=== PATIENT | female | born 1945 | race Caucasian/White ===

== ENCOUNTER 2016-08-15 10:40 | Outpatient (CLI) | payer MEDICARE, OTHER | END 2016-08-15 10:41 | disposition home or self-care (01) | DX: N63 Unspecified lump in breast (principal) ==

== ENCOUNTER 2016-08-19 10:47 | Outpatient (CLI) | payer MEDICARE, OTHER | END 2016-08-19 10:48 | disposition home or self-care (01) | DX: N63 Unspecified lump in breast (principal) ==

== ENCOUNTER 2017-11-25 09:43 | Outpatient (CLI) | payer MEDICARE, OTHER ==
--- NOTE | 2017-11-26 13:15 | Mammography Report ---
Procedure Date: 11/25/2017 Accession Number: [id number] / [id number] Procedure: MARIA GUADALUPE - Screening Mammo Dig Bilat CPT Code: FULL RESULT: EXAM: Screening Mammo Dig Bilat DATE: 11/25/2017 10:03 AM CLINICAL HISTORY: 72-year-old nulliparous patient for screening, history of benign left breast cyst COMPARISON: 08/15/2016, 12/19/2014, 01/01/2013, 10/28/2011, 11/02/2010, 09/25/2009 TECHNIQUE: Bilateral CC, laterally exaggerated CC, MLO views were obtained. FINDINGS: Breasts demonstrate heterogeneously dense fibroglandular parenchyma bilaterally. Coarse and punctate, typically benign calcifications are present. No suspicious masses, clustered microcalcifications, or regions of architectural distortion are identified. IMPRESSION: Benign findings RECOMMENDATION: Routine annual screening unless otherwise clinically indicated. BIRADS CATEGORY 2: Benign findings STANDARD QUALIFYING STATEMENTS: 1. This examination was reviewed with the aid of Computer-Aided Detection (CAD). 2. A negative or benign imaging report should not delay biopsy if clinically suspicious findings are present. Consider surgical consultation if warrented. More than 5% of cancers are not identified by imaging. 3. Dense breasts may obscure an underlying neoplasm.
== END 2017-11-25 09:44 | disposition home or self-care (01) ==
LOC: DI 09:43
PROVIDERS: ATTEND Nurse Practitioner Family
DX: Z12.31 Encounter for screening mammogram for malignant neoplasm of breast (principal)
CPT/HCPCS: 77067

== ENCOUNTER 2017-12-11 07:12 | Outpatient (CLI) | payer MEDICARE, OTHER ==
[2017-12-11 11:56] LABS: BASOPHILS # (AUTO) 0.1 10^3/uL (0.0-0.1); BASOPHILS % (AUTO) 2.2 %; EOSINOPHILS # (AUTO) 0.6 10^3/uL (0.0-0.7); EOSINOPHILS % (AUTO) 9.9 %; HGB - HEMOGLOBIN 12.7 g/dL (12.0-16.0); LYMPHOCYTES # (AUTO) 1.4 10^3/uL (1.5-3.5); LYMPHOCYTES % (AUTO) 21.8 %; MEAN CORPUSCULAR HEMOGLOBIN 32.2 pg (27.0-31.0); MEAN CORPUSCULAR HGB CONC 33.4 g/dL (32.0-36.0); MEAN CORPUSCULAR VOLUME 96.3 fL (81.0-99.0); MEAN PLATELET VOLUME 7.9 fL (7.9-10.8); MONOCYTES # (AUTO) 0.6 10^3/uL (0.0-1.0); MONOCYTES % (AUTO) 9.7 %; NEUTROPHILS # (AUTO) 3.6 10^3/uL (1.5-6.6); NEUTROPHILS % (AUTO) 56.4 %; PLT - PLATELET COUNT 354 10^3/uL (130-450); RED BLOOD COUNT 3.96 10^6/uL (4.20-5.40); RED CELL DISTRIBUTION WIDTH 13.7 % (12.0-15.0); WHITE BLOOD COUNT 6.3 x10^3/uL (4.8-10.8)
[2017-12-11 12:18] LABS: ALBUMIN/GLOBULIN RATIO 1.3 (1.0-2.2); ALKALINE PHOSPHATASE 53 IU/L (42-121); ALT ALANINE AMINOTRANSFERASE < 10 IU/L (10-60); AST ASPARTATE AMINOTRANSFERASE 23 IU/L (10-42); BILIRUBIN,TOTAL 0.7 mg/dL (0.2-1.0); BUN - BLOOD UREA NITROGEN 23 mg/dL (6-20); CALCIUM 9.2 mg/dL (8.5-10.3); CARBON DIOXIDE - CO2 29 mmol/L (21-32); CHLORIDE 103 mmol/L (101-111); CHOL/HDL RATIO 3.6 (<4.4); CHOLESTEROL 276 mg/dL; CREATININE 0.7 mg/dL (0.4-1.0); GFR - MDRD 82 (>89); GLUCOSE 96 mg/dL (70-100); HDL CHOLESTEROL 76 mg/dL; LDL CHOLESTEROL,CALCULATED 185 mg/dL; LDL/HDL RATIO 2.4 (<4.4); SODIUM 138 mmol/L (135-145); TOTAL PROTEIN 7.2 g/dL (6.7-8.2); VLDL CHOLESTEROL 15 mg/dL
== END 2017-12-11 07:13 | disposition home or self-care (01) ==
LOC: LAB.F 07:12
PROVIDERS: ATTEND Nurse Practitioner Family
DX: I10 Essential (primary) hypertension (principal); E78.5 Hyperlipidemia, unspecified; R73.01 Impaired fasting glucose; G25.0 Essential tremor; J45.909 Unspecified asthma, uncomplicated; J30.89 Other allergic rhinitis
CPT/HCPCS: 36415; 80053; 80061; 83721; 84443; 85025

== ENCOUNTER 2018-04-20 07:58 | Outpatient (CLI) | payer MEDICARE, OTHER ==
[2018-04-20 11:37] LABS: ALBUMIN 4.1 g/dL (3.2-5.5); ALKALINE PHOSPHATASE 58 IU/L (42-121); ALT ALANINE AMINOTRANSFERASE < 10 IU/L (10-60); AST ASPARTATE AMINOTRANSFERASE 30 IU/L (10-42); BILIRUBIN,DIRECT 0.1 mg/dL (0.1-0.5); CHOLESTEROL 171 mg/dL; HDL CHOLESTEROL 87 mg/dL; LDL CHOLESTEROL,CALCULATED 72 mg/dL; LDL/HDL RATIO 0.8 (<4.4); TOTAL PROTEIN 6.9 g/dL (6.7-8.2); VLDL CHOLESTEROL 12 mg/dL
== END 2018-04-20 07:59 | disposition home or self-care (01) ==
LOC: LAB.F 07:58
PROVIDERS: ATTEND Nurse Practitioner Family
DX: E78.5 Hyperlipidemia, unspecified (principal)
CPT/HCPCS: 36415; 80061; 80076; 83721

== ENCOUNTER 2018-12-28 17:00 | Outpatient (CLI) | payer MEDICARE, OTHER ==
--- NOTE | 2018-12-29 11:49 | XRAY Report ---
Reason: PAIN AND SWELLING LATERAL R ANKLE Procedure Date: 12/28/2018 Accession Number: [id number] / [id number] Procedure: XR - Ankle 3 View RT CPT Code: FULL RESULT: EXAM: RIGHT ANKLE RADIOGRAPHY EXAM DATE: 12/28/2018 05:09 PM. CLINICAL HISTORY: Pain and swelling lateral right ankle. COMPARISON: None. TECHNIQUE: 3 views. FINDINGS: Bones: There is a small focus, 2 mm, of ill-defined cortex in the tip of the medial malleolus. There is a small calcaneal plantar spur. Otherwise, no fractures or bone lesions identified. Joints: No effusion. No subluxations. There is mild osteoarthritis in the mortise joint. Soft Tissues: There is mild soft tissue swelling in the lateral malleolus. IMPRESSION: 1. A small focus of ill-defined cortex in the tip of the medial malleolus, which may represent imaging artifact versus tiny avulsion fracture. Otherwise, no fractures or bone destructive lesions identified. 2. 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 RADIA
== END 2018-12-28 17:01 | disposition home or self-care (01) ==
LOC: DI 17:00
PROVIDERS: ATTEND Podiatrist
DX: M19.071 Primary osteoarthritis, right ankle and foot (principal)

== ENCOUNTER 2019-01-04 07:23 | Outpatient (CLI) | payer MEDICARE, OTHER ==
[2019-01-04 10:34] LABS: BUN - BLOOD UREA NITROGEN 16 mg/dL (6-20); CARBON DIOXIDE - CO2 28 mmol/L (21-32); CHLORIDE 103 mmol/L (101-111); CREATININE 0.6 mg/dL (0.4-1.0); GFR - MDRD 98 (>89); GLUCOSE 112 mg/dL (70-100); SODIUM 141 mmol/L (135-145)
[2019-01-04 10:35] LABS: ALBUMIN 3.9 g/dL (3.2-5.5); ALBUMIN/GLOBULIN RATIO 1.1 (1.0-2.2); ALKALINE PHOSPHATASE 70 IU/L (42-121); ALT ALANINE AMINOTRANSFERASE < 10 IU/L (10-60); AST ASPARTATE AMINOTRANSFERASE 27 IU/L (10-42); CALCIUM 9.4 mg/dL (8.5-10.3); TOTAL PROTEIN 7.3 g/dL (6.7-8.2); VLDL CHOLESTEROL 12 mg/dL
[2019-01-04 10:36] LABS: CHOL/HDL RATIO 2.1 (<4.4); CHOLESTEROL 173 mg/dL; HDL CHOLESTEROL 83 mg/dL; LDL CHOLESTEROL,CALCULATED 78 mg/dL; LDL/HDL RATIO 0.9 (<4.4)
[2019-01-04 10:39] LABS: HEMOGLOBIN A1C 0.53 g/dL; HEMOGLOBIN A1C % 5.9 % (4.6-6.2)
== END 2019-01-04 07:24 | disposition home or self-care (01) ==
LOC: LAB.S 07:23
PROVIDERS: ATTEND Internal Medicine
DX: E78.5 Hyperlipidemia, unspecified (principal); R73.01 Impaired fasting glucose; Z13.39 Encounter for screening examination for other mental health and behavioral disorders
CPT/HCPCS: 36415; 80053; 80061; 83036; 83721

== ENCOUNTER 2019-01-07 12:59 | Outpatient (CLI) | payer MEDICARE, OTHER ==
--- NOTE | 2019-01-08 09:30 | DEXA Report ---
Reason: OSTEOPOROSIS Procedure Date: 01/07/2019 Accession Number: [id number] / [id number] Procedure: DEX - Dexa Forearm CPT Code: FULL RESULT: EXAM: Dexa Spine and/or Hip, Dexa Forearm DATE: 01/07/2019 2:30 PM CLINICAL HISTORY: OSTEOPOROSIS TECHNIQUE: Dual energy x-ray absorptiometry (DXA) was performed on a [employer] System. Regions measured are the AP Spine, femoral neck, and if needed forearm. COMPARISON: None. In accordance with the International Society for Clinical Densitometry (ISCD) guidelines, data from previous exams may be reanalyzed using current recommendations and techniques. This is done to allow a more accurate basis for comparison with the current study. FINDINGS: The data for the hip is as follows: BMD (g/cm/cm) T-SCORE Z-SCORE REGION Neck 0.700 -2.4 0.2 TOTAL 0.674 -2.6 -0.1 NOTE: The femoral neck or total proximal femur, whichever is lowest, is used for classification. The data for the left forearm is as follows: BMD (g/cm/cm) T-SCORE Z-SCORE REGION 1/3 0.574 -3.4 -1.3 NOTE: The 33% radius of the nondominant forearm is used for classification. IMPRESSION: THE WHO CLASSIFICATION BASED ON THE INTERNATIONAL REFERENCE STANDARD IS OSTEOPOROSIS. THE FRACTURE RISK IS HIGH. RECOMMENDATION: Patients with diagnosis of osteoporosis or osteopenia should have regular bone mineral density assessment. For those eligible for Medicare, routine testing is allowed once every 2 years. Testing frequency can be increased for patients who have rapidly progressing disease or for those who are receiving medical therapy to restore bone mass. COMMENT: World Health Organization (WHO) definitions for osteoporosis and osteopenia: NORMAL BMD: T-score at -1.0 or higher, fracture risk is low OSTEOPENIA BMD: T-score between -1.0 and -2.5, fracture risk is increased. OSTEOPOROSIS BMD: T-score at -2.5 or lower, fracture risk is high. National Osteoporosis Foundation recommends: 1. Obtain adequate dietary calcium (at least 1200 mg per day) and vitamin D (400-800 international units per day). 2. Participate, as appropriate, in regular weightbearing and muscle-strengthening exercise. 3. Avoid tobacco use and reduce alcohol and caffeine intake. 4. For more detailed information see the website at www.NOF.org.
--- NOTE | 2019-01-08 09:30 | DEXA Report ---
Reason: OSTEOPOROSIS Procedure Date: 01/07/2019 Accession Number: [id number] / [id number] Procedure: DEX - Dexa Spine and/or Hip CPT Code: FULL RESULT: EXAM: Dexa Spine and/or Hip, Dexa Forearm DATE: 01/07/2019 2:30 PM CLINICAL HISTORY: OSTEOPOROSIS TECHNIQUE: Dual energy x-ray absorptiometry (DXA) was performed on a [employer] System. Regions measured are the AP Spine, femoral neck, and if needed forearm. COMPARISON: None. In accordance with the International Society for Clinical Densitometry (ISCD) guidelines, data from previous exams may be reanalyzed using current recommendations and techniques. This is done to allow a more accurate basis for comparison with the current study. FINDINGS: The data for the hip is as follows: BMD (g/cm/cm) T-SCORE Z-SCORE REGION Neck 0.700 -2.4 0.2 TOTAL 0.674 -2.6 -0.1 NOTE: The femoral neck or total proximal femur, whichever is lowest, is used for classification. The data for the left forearm is as follows: BMD (g/cm/cm) T-SCORE Z-SCORE REGION 1/3 0.574 -3.4 -1.3 NOTE: The 33% radius of the nondominant forearm is used for classification. IMPRESSION: THE WHO CLASSIFICATION BASED ON THE INTERNATIONAL REFERENCE STANDARD IS OSTEOPOROSIS. THE FRACTURE RISK IS HIGH. RECOMMENDATION: Patients with diagnosis of osteoporosis or osteopenia should have regular bone mineral density assessment. For those eligible for Medicare, routine testing is allowed once every 2 years. Testing frequency can be increased for patients who have rapidly progressing disease or for those who are receiving medical therapy to restore bone mass. COMMENT: World Health Organization (WHO) definitions for osteoporosis and osteopenia: NORMAL BMD: T-score at -1.0 or higher, fracture risk is low OSTEOPENIA BMD: T-score between -1.0 and -2.5, fracture risk is increased. OSTEOPOROSIS BMD: T-score at -2.5 or lower, fracture risk is high. National Osteoporosis Foundation recommends: 1. Obtain adequate dietary calcium (at least 1200 mg per day) and vitamin D (400-800 international units per day). 2. Participate, as appropriate, in regular weightbearing and muscle-strengthening exercise. 3. Avoid tobacco use and reduce alcohol and caffeine intake. 4. For more detailed information see the website at www.NOF.org.
== END 2019-01-07 13:00 | disposition home or self-care (01) ==
LOC: DI 12:59
PROVIDERS: ATTEND Internal Medicine
DX: M81.0 Age-related osteoporosis without current pathological fracture (principal)
CPT/HCPCS: 77080; 77081

== ENCOUNTER 2019-01-07 13:02 | Outpatient (CLI) | payer MEDICARE, OTHER ==
--- NOTE | 2019-01-08 11:18 | Mammography Report ---
Reason: SCREENING MAMMO Procedure Date: 01/07/2019 Accession Number: [id number] / [id number] Procedure: MARIA GUADALUPE - Screening Mammo w/Daljit CPT Code: FULL RESULT: EXAM: Screening Mammo w/Daljit DATE: 01/07/2019 2:32 PM CLINICAL HISTORY: Screening encounter. History of nulliparity and history of left benign breast biopsy, excisional type. Family history of breast cancer in a paternal grandmother at the age of 70. TECHNIQUE: (B) - Bilateral CC and MLO views were obtained. Bilaterally medially exaggerated CC views are also obtained. COMPARISON: 11/25/2017 through 01/01/2013. PARENCHYMAL PATTERN: (VD) - The breast(s) demonstrate(s) extremely dense parenchyma, limiting the sensitivity of mammography. FINDINGS: There are coarse typically benign calcifications. There are no suspicious masses, calcifications, or areas of distortion. IMPRESSION: Benign findings. BI-RADS category 2. RECOMMENDATION: (ANNUAL) - Recommend routine annual screening mammography. BI-RADS CATEGORY: (2) - Benign Findings. STANDARD QUALIFYING STATEMENTS: 1. This examination was not reviewed with the aid of Computer-Aided Detection (CAD). 2. A negative or benign imaging report should not preclude biopsy if clinically suspicious findings are present. 3. Dense breasts may obscure an underlying neoplasm. 4. This examination was reviewed with the aid of 3D breast imaging (tomosynthesis).
== END 2019-01-07 13:03 | disposition home or self-care (01) ==
LOC: DI 13:02
DX: Z12.31 Encounter for screening mammogram for malignant neoplasm of breast (principal); Z80.3 Family history of malignant neoplasm of breast
CPT/HCPCS: 77063; 77067

== ENCOUNTER 2020-01-04 07:03 | Outpatient (CLI) | payer MEDICARE, OTHER ==
[2020-01-04 15:52] LABS: ALBUMIN 4.4 g/dL (3.2-5.5); ALBUMIN/GLOBULIN RATIO 1.5 (1.0-2.2); ALKALINE PHOSPHATASE 57 IU/L (42-121); ALT ALANINE AMINOTRANSFERASE < 10 IU/L (10-60); AST ASPARTATE AMINOTRANSFERASE 29 IU/L (10-42); BILIRUBIN,TOTAL 0.9 mg/dL (0.2-1.0); BUN - BLOOD UREA NITROGEN 23 mg/dL (6-20); CALCIUM 9.5 mg/dL (8.5-10.3); CARBON DIOXIDE - CO2 28 mmol/L (21-32); CHLORIDE 105 mmol/L (101-111); CHOL/HDL RATIO 1.8 (<4.4); CHOLESTEROL 161 mg/dL; CREATININE 0.7 mg/dL (0.4-1.0); GLUCOSE 103 mg/dL (70-100); HDL CHOLESTEROL 90 mg/dL; SODIUM 141 mmol/L (135-145); TOTAL PROTEIN 7.4 g/dL (6.7-8.2)
== END 2020-01-04 07:04 | disposition home or self-care (01) ==
LOC: LAB.S 07:03
PROVIDERS: ATTEND Internal Medicine
DX: E78.5 Hyperlipidemia, unspecified (principal); R73.01 Impaired fasting glucose
CPT/HCPCS: 36415; 80053; 80061; 81599; 83036; 83721

== ENCOUNTER 2020-12-25 07:12 | Outpatient (CLI) | payer MEDICARE, OTHER ==
[2020-12-25 16:25] LABS: BASOPHILS # (AUTO) 0.1 10^3/uL (0.0-0.1); BASOPHILS % (AUTO) 1.2 %; EOSINOPHILS # (AUTO) 0.5 10^3/uL (0.0-0.7); EOSINOPHILS % (AUTO) 7.9 %; HCT - HEMATOCRIT 40.2 % (37.0-47.0); HGB - HEMOGLOBIN 12.4 g/dL (12.0-16.0); LYMPHOCYTES # (AUTO) 1.8 10^3/uL (1.5-3.5); LYMPHOCYTES % (AUTO) 30.1 %; MEAN CORPUSCULAR HEMOGLOBIN 31.6 pg (27.0-31.0); MEAN CORPUSCULAR HGB CONC 30.8 g/dL (32.0-36.0); MEAN CORPUSCULAR VOLUME 102.6 fL (81.0-99.0); MEAN PLATELET VOLUME 10.3 fL (7.9-10.8); MONOCYTES # (AUTO) 0.8 10^3/uL (0.0-1.0); MONOCYTES % (AUTO) 13.7 %; NEUTROPHILS # (AUTO) 2.8 10^3/uL (1.5-6.6); NEUTROPHILS % (AUTO) 46.8 %; PLT - PLATELET COUNT 300 10^3/uL (130-450); RED BLOOD COUNT 3.92 10^6/uL (4.20-5.40); RED CELL DISTRIBUTION WIDTH 13.4 % (12.0-15.0)
[2020-12-25 16:50] LABS: THYROID STIMULATING HORMONE 2.38 uIU/mL (0.34-5.60)
[2020-12-25 16:55] LABS: ALBUMIN 4.4 g/dL (3.2-5.5); ALBUMIN/GLOBULIN RATIO 1.5 (1.0-2.2); ALKALINE PHOSPHATASE 52 IU/L (42-121); ALT ALANINE AMINOTRANSFERASE < 10 IU/L (10-60); AST ASPARTATE AMINOTRANSFERASE 36 IU/L (10-42); BILIRUBIN,TOTAL 0.9 mg/dL (0.2-1.0); BUN - BLOOD UREA NITROGEN 22 mg/dL (6-20); CALCIUM 9.3 mg/dL (8.5-10.3); CARBON DIOXIDE - CO2 29 mmol/L (21-32); CHLORIDE 102 mmol/L (101-111); CHOL/HDL RATIO 2.1 (<4.4); CHOLESTEROL 187 mg/dL; CREATININE 0.7 mg/dL (0.4-1.0); GFR - MDRD 82 (>89); GLUCOSE 108 mg/dL (70-100); HDL CHOLESTEROL 88 mg/dL; LDL CHOLESTEROL,CALCULATED 86 mg/dL; SODIUM 138 mmol/L (135-145); TOTAL PROTEIN 7.3 g/dL (6.7-8.2); TRIGLYCERIDES 66 mg/dL; VLDL CHOLESTEROL 13 mg/dL
[2020-12-25 20:03] LABS: ESTIMATED AVERAGE GLUCOSE 117 mg/dL (70-100); HEMOGLOBIN A1c% 5.7 % (4.27-6.07)
== END 2020-12-25 07:13 | disposition home or self-care (01) ==
LOC: LAB.S 07:12
PROVIDERS: ATTEND Registered Nurse
DX: E78.5 Hyperlipidemia, unspecified (principal); R73.01 Impaired fasting glucose; J45.909 Unspecified asthma, uncomplicated
CPT/HCPCS: 36415; 80053; 80061; 83036; 83721; 84443; 85025

== ENCOUNTER 2021-04-08 12:58 | Outpatient (CLI) | payer MEDICARE, OTHER ==
--- NOTE | 2021-04-10 08:02 | Mammography Report ---
BILATERAL DIGITAL SCREENING MAMMOGRAM 3D/2D WITH EXAGGERATED CC: 04/08/2021 CLINICAL: Routine screening. Comparison is made to exams dated: 01/07/2019 mammogram, 11/25/2017 mammogram, and 08/19/2016 ultrasound - [facility]. The tissue of both breasts is heterogeneously dense. This may lower the sensitivity of mammography. No significant masses, calcifications, or other findings are seen in either breast. There has been no significant interval change. IMPRESSION: NEGATIVE There is no mammographic evidence of malignancy. A 1 year screening mammogram is recommended. This exam was interpreted at Station ID: [id number]. NOTE: For mammograms, a report in lay terms will be sent to the patient. Approximately 15% of breast malignancies will not be visualized mammographically. In the management of a palpable breast mass, a negative mammogram must not discourage biopsy of a clinically suspicious lesion. Electronically Signed By: Mayte gomez/mario:04/09/2021 11:11:00 ACR BI-RADS Category 1: Negative 3341F PARENCHYMAL PATTERN: (D) - The breast(s) demonstrate(s) heterogeneously dense fibroglandular jie self. BI-RADS CATEGORY: (1) - 1 RECOMMENDATION: (ANNUAL) - Recommend routine annual screening mammography. [id number] 1 year screening LATERALITY: (B)
== END 2021-04-08 12:59 | disposition home or self-care (01) ==
LOC: DI.S 12:58
PROVIDERS: ATTEND Registered Nurse
DX: Z12.31 Encounter for screening mammogram for malignant neoplasm of breast (principal)

== ENCOUNTER 2022-03-06 10:00 | Outpatient (CLI) | payer MEDICARE, OTHER ==
--- NOTE | 2022-03-06 15:27 | XRAY Report ---
PROCEDURE: Foot 3 View RT INDICATIONS: ACUTE RIGHT FOOT PAIN TECHNIQUE: 3 views of the foot were acquired. COMPARISON: None FINDINGS: Bones: No fractures or dislocations. No suspicious bony lesions. Moderate joint space narrowing an d periarticular osteophyte formation at the first metatarsophalangeal joint. Mild periarticular osteo phyte formation at the interphalangeal joints of the digits. Soft tissues: No tibiotalar joint effusion. Achilles tendon appears normal. IMPRESSION: Osteoarthritis. No acute fracture. No osseous lesion. If symptoms and/or clinical suspicion for patho logy continue, further assessment with repeat plain films, or advanced imaging (e.g., CT, MRI, or bon e scan) is recommended for further assessment. Reviewed by: Lj Hernandez MD on 03/06/2022 3:25 PM PDT Approved by: Lj Hernandez MD on 03/06/2022 3:25 PM PDT Station ID: [id number]
== END 2022-03-06 10:01 | disposition home or self-care (01) ==
LOC: DI.S 10:00
PROVIDERS: ATTEND Podiatrist
DX: M19.071 Primary osteoarthritis, right ankle and foot (principal)

== ENCOUNTER 2022-04-17 09:52 | Outpatient (CLI) | payer MEDICARE, OTHER ==
--- NOTE | 2022-04-29 10:05 | Mammography Report ---
BILATERAL DIGITAL SCREENING MAMMOGRAM 3D/2D WITH EXAGGERATED CC: 04/17/2022 CLINICAL: Routine screening. Comparison is made to exams dated: 04/08/2021 mammogram, 08/19/2016 ultrasound, 08/15/2016 mammogram, an d 12/19/2014 mammogram - [facility]. Both breasts are extremely dense, which lowers the sensitivity of mammography (category d />75% gland ular tissue). No significant masses, calcifications, or other findings are seen in either breast. There has been no significant interval change. IMPRESSION: NEGATIVE There is no mammographic evidence of malignancy. A 1 year screening mammogram is recommended. Based on the Tyrer Cuzick model (a risk assessment model) the patients lifetime risk is 6.3% and her 10 year risk is 0.0%. According to the ACR, ACS, and NCCN guidelines, an annual breast MRI exam jake g with mammogram is recommended if the patients lifetime risk is 20% or greater. This exam was interpreted at Station ID: [id number]. NOTE: For mammograms, a report in lay terms will be sent to the patient. Approximately 15% of breast malignancies will not be visualized mammographically. In the management of a palpable breast mass, a negative mammogram must not discourage biopsy of a clinically suspicious lesion. Electronically Signed By: Judson Jensen M.D., jr/mario:04/26/2022 14:43:41 ACR BI-RADS Category 1: Negative 3341F PARENCHYMAL PATTERN: (VD) - The breast(s) demonstrate(s) extremely dense parenchyma, limiting the sen sitivity of mammography. BI-RADS CATEGORY: (1) - 1 RECOMMENDATION: (ANNUAL) - Recommend routine annual screening mammography. [id number] 1 year screening LATERALITY: (B)
== END 2022-04-17 09:53 | disposition home or self-care (01) ==
LOC: DI.S 09:52
PROVIDERS: ATTEND Registered Nurse
DX: Z12.31 Encounter for screening mammogram for malignant neoplasm of breast (principal)

== ENCOUNTER 2022-04-24 07:20 | Outpatient (CLI) | payer MEDICARE, OTHER ==
[2022-04-24 14:37] LABS: BASOPHILS # (AUTO) 0.1 10^3/uL (0.0-0.1); BASOPHILS % (AUTO) 1.5 %; EOSINOPHILS # (AUTO) 0.3 10^3/uL (0.0-0.7); EOSINOPHILS % (AUTO) 5.1 %; HCT - HEMATOCRIT 39.3 % (37.0-47.0); HGB - HEMOGLOBIN 12.5 g/dL (12.0-16.0); LYMPHOCYTES # (AUTO) 1.4 10^3/uL (1.5-3.5); MEAN CORPUSCULAR HEMOGLOBIN 32.6 pg (27.0-31.0); MEAN CORPUSCULAR HGB CONC 31.8 g/dL (32.0-36.0); MEAN CORPUSCULAR VOLUME 102.3 fL (81.0-99.0); MEAN PLATELET VOLUME 9.9 fL (7.9-10.8); MONOCYTES # (AUTO) 0.6 10^3/uL (0.0-1.0); MONOCYTES % (AUTO) 11.6 %; NEUTROPHILS # (AUTO) 2.9 10^3/uL (1.5-6.6); NEUTROPHILS % (AUTO) 55.6 %; PLT - PLATELET COUNT 325 10^3/uL (130-450); RED BLOOD COUNT 3.84 10^6/uL (4.20-5.40); RED CELL DISTRIBUTION WIDTH 13.2 % (12.0-15.0); WHITE BLOOD COUNT 5.3 x10^3/uL (4.8-10.8)
[2022-04-24 15:14] LABS: ALBUMIN 4.4 g/dL (3.2-5.5); ALBUMIN/GLOBULIN RATIO 1.4 (1.0-2.2); ALKALINE PHOSPHATASE 66 IU/L (42-121); ALT ALANINE AMINOTRANSFERASE < 10 IU/L (10-60); AST ASPARTATE AMINOTRANSFERASE 37 IU/L (10-42); BILIRUBIN,TOTAL 0.9 mg/dL (0.2-1.0); BUN - BLOOD UREA NITROGEN 21 mg/dL (6-20); CALCIUM 9.5 mg/dL (8.5-10.3); CARBON DIOXIDE - CO2 30 mmol/L (21-32); CHLORIDE 105 mmol/L (101-111); CHOLESTEROL 170 mg/dL; CREATININE 0.7 mg/dL (0.4-1.0); GFR - MDRD 81 (>89); GLUCOSE 113 mg/dL (70-100); HDL CHOLESTEROL 84 mg/dL; LDL CHOLESTEROL,CALCULATED 75 mg/dL; LDL/HDL RATIO 0.9 (<4.4); SODIUM 140 mmol/L (135-145); TOTAL PROTEIN 7.5 g/dL (6.7-8.2); TRIGLYCERIDES 56 mg/dL; VLDL CHOLESTEROL 11 mg/dL
[2022-04-24 15:24] LABS: THYROID STIMULATING HORMONE 1.28 uIU/mL (0.34-5.60)
== END 2022-04-24 07:21 | disposition home or self-care (01) ==
LOC: LAB.S 07:20
PROVIDERS: ATTEND Registered Nurse
DX: J45.909 Unspecified asthma, uncomplicated (principal); E78.5 Hyperlipidemia, unspecified; R73.01 Impaired fasting glucose; Z79.899 Other long term (current) drug therapy
CPT/HCPCS: 36415; 80053; 80061; 83721; 84443; 85025

== ENCOUNTER 2022-06-19 12:30 | Outpatient (CLI) | payer MEDICARE, OTHER ==
--- NOTE | 2022-06-19 18:19 | DEXA Report ---
PROCEDURE: Dexa Spine and/or Hip INDICATIONS: POST MENOPAUSAL. Extensive scoliosis precludes evaluation of the lumbar spine bone patent examiner alization. Forearm was substituted TECHNIQUE: Dual energy x-ray absorptiometry (DXA) was performed on a [employer]. Regions measur ed are the AP Spine, femoral neck, and if needed forearm. COMPARISON: None. FINDINGS: Left Femoral Neck: Bone Mineral Density 0.621 g/cm/cm, T score -3.0, osteoporosis Left Hip: Bone Mineral Density 0.702 g/cm/cm,T score -2.4, previous BMD 0.657 Left forearm: Bone Mineral Density 0.505 g/cm/cm, T score -4.2, previous 0.567 BMD (T score greater or equal to -1.0: NORMAL) (T score from -1.1 to -2.4: OSTEOPENIA) (T score less than or equal to -2.5 to: OSTEOPOROSIS) Impression: Left hip osteopenia slightly improved, and left forearm osteoporosis slightly worse Patients with diagnosis of osteoporosis or osteopenia should have regular bone mineral density assess ment. For those eligible for Medicare, routine testing is allowed once every 2 years. Testing frequ ency can be increased for patients who have rapidly progressing disease or for those who are receivin g medical therapy to restore bone mass. Reviewed by: Ridge Jarvis MD on 06/19/2022 5:17 PM [place] Approved by: Ridge Jarvis MD on 06/19/2022 5:17 PM [place] Station ID: [id number]
== END 2022-06-19 12:31 | disposition home or self-care (01) ==
LOC: DI 12:30
PROVIDERS: ATTEND Registered Nurse
DX: Z78.0 Asymptomatic menopausal state (principal); M81.0 Age-related osteoporosis without current pathological fracture

== ENCOUNTER 2023-06-02 07:52 | Outpatient (CLI) | payer MEDICARE, OTHER ==
[2023-06-02 15:13] LABS: BASOPHILS # (AUTO) 0.1 10^3/uL (0.0-0.1); BASOPHILS % (AUTO) 1.8 %; EOSINOPHILS # (AUTO) 0.3 10^3/uL (0.0-0.7); EOSINOPHILS % (AUTO) 4.4 %; HCT - HEMATOCRIT 40.3 % (37.0-47.0); HGB - HEMOGLOBIN 12.7 g/dL (12.0-16.0); LYMPHOCYTES # (AUTO) 1.5 10^3/uL (1.5-3.5); MEAN CORPUSCULAR HEMOGLOBIN 31.7 pg (27.0-31.0); MEAN CORPUSCULAR HGB CONC 31.5 g/dL (32.0-36.0); MEAN CORPUSCULAR VOLUME 100.5 fL (81.0-99.0); MEAN PLATELET VOLUME 10.3 fL (7.9-10.8); MONOCYTES # (AUTO) 0.9 10^3/uL (0.0-1.0); MONOCYTES % (AUTO) 13.9 %; NEUTROPHILS # (AUTO) 3.3 10^3/uL (1.5-6.6); NEUTROPHILS % (AUTO) 54.7 %; PLT - PLATELET COUNT 325 10^3/uL (130-450); RED BLOOD COUNT 4.01 10^6/uL (4.20-5.40); RED CELL DISTRIBUTION WIDTH 12.7 % (12.0-15.0); WHITE BLOOD COUNT 6.1 x10^3/uL (4.8-10.8)
[2023-06-02 15:30] LABS: ALBUMIN 4.5 g/dL (3.2-5.5); ALBUMIN/GLOBULIN RATIO 1.7 (1.0-2.2); ALKALINE PHOSPHATASE 62 IU/L (42-121); ALT ALANINE AMINOTRANSFERASE 9 IU/L (10-60); AST ASPARTATE AMINOTRANSFERASE 36 IU/L (10-42); BILIRUBIN,TOTAL 0.7 mg/dL (0.2-1.0); BUN - BLOOD UREA NITROGEN 17 mg/dL (6-20); CALCIUM 9.9 mg/dL (8.5-10.3); CARBON DIOXIDE - CO2 30 mmol/L (21-32); CHLORIDE 106 mmol/L (101-111); CHOL/HDL RATIO 1.9 (<4.4); CHOLESTEROL 155 mg/dL; CREATININE 0.6 mg/dL (0.6-1.3); GFR - MDRD 97 (>89); GLUCOSE 83 mg/dL (74-104); HDL CHOLESTEROL 81 mg/dL; LDL CHOLESTEROL,CALCULATED 57 mg/dL; LDL/HDL RATIO 0.7 (<4.4); POTASSIUM 3.9 mmol/L (3.5-4.5); SODIUM 142 mmol/L (135-145); TOTAL PROTEIN 7.1 g/dL (6.4-8.9); TRIGLYCERIDES 83 mg/dL (48-352); VLDL CHOLESTEROL 17 mg/dL
== END 2023-06-02 07:53 | disposition home or self-care (01) ==
LOC: LAB.S 07:52
PROVIDERS: ATTEND Registered Nurse
DX: R73.9 Hyperglycemia, unspecified (principal); Z79.899 Other long term (current) drug therapy; E78.5 Hyperlipidemia, unspecified
CPT/HCPCS: 36415; 80053; 80061; 83721; 85025

== ENCOUNTER 2023-06-17 13:03 | Outpatient (CLI) | payer MEDICARE, OTHER ==
--- NOTE | 2023-06-18 16:48 | Mammography Report ---
BILATERAL DIGITAL SCREENING MAMMOGRAM 3D/2D: 06/17/2023 CLINICAL: Routine screening. Comparison is made to exams dated: 04/17/2022 mammogram, 04/08/2021 mammogram, 01/07/2019 mammogram, a nd 11/25/2017 mammogram - [facility]. Both breasts are extremely dense, which lowers the sensitivity of mammography (category d />75% gland ular tissue). No significant masses, calcifications, or other findings are seen in either breast. There has been no significant interval change. IMPRESSION: NEGATIVE There is no mammographic evidence of malignancy. A 1 year screening mammogram is recommended. Based on the Tyrer Cuzick model (a risk assessment model) the patients lifetime risk is 5.6% and her 10 year risk is 0.0%. According to the ACR, ACS, and NCCN guidelines, an annual breast MRI exam jake g with mammogram is recommended if the patients lifetime risk is 20% or greater. This exam was interpreted at Station ID: [id number]. NOTE: For mammograms, a report in lay terms will be sent to the patient. Approximately 15% of breast malignancies will not be visualized mammographically. In the management of a palpable breast mass, a negative mammogram must not discourage biopsy of a clinically suspicious lesion. Electronically Signed By: Gonzalo sharma/mario:06/17/2023 16:09:45 letter sent: No_Letter ACR BI-RADS Category 1: Negative 3341F PARENCHYMAL PATTERN: (VD) - The breast(s) demonstrate(s) extremely dense parenchyma, limiting the sen sitivity of mammography. BI-RADS CATEGORY: (1) - 1 Mammogram [id number] 1 year screening LATERALITY: (B)
== END 2023-06-17 13:04 | disposition home or self-care (01) ==
LOC: DI.S 13:03
DX: Z12.31 Encounter for screening mammogram for malignant neoplasm of breast (principal); R92.343 Mammographic extreme density, bilateral breasts

== ENCOUNTER 2024-03-04 22:13 | Emergency (ER) | payer MEDICARE, OTHER ==
[2024-03-04 22:31] VITALS: O2SAT 99
--- NOTE | 2024-03-04 23:47 | XRAY Report ---
PROCEDURE: Wrist 3+V LT INDICATIONS: pain/tenderness/swelling L wrist. TECHNIQUE: 3 views of the wrist were acquired. COMPARISON: 09/22/2023 FINDINGS: Bones: Moderately impacted and displaced distal radius fracture. Small radial styloid fracture fragm ent also seen. Background mild to moderate degenerative changes. Soft tissues: No suspicious calcifications. IMPRESSION: Moderately impacted and angulated distal radius fracture. Radial styloid fracture fragment also prese nt. Background degenerative changes. Reviewed by: Roge Mackey MD on 03/04/2024 11:46 PM PDT Approved by: Roge Mackey MD on 03/04/2024 11:46 PM PDT Station ID: [id number]
--- NOTE | 2024-03-04 23:53 | ED Physician Documentation ---
PD HPI UPPER EXT INJURY - Stated complaint Stated Complaint: GLF/L WRIST INJ - Chief complaint Chief Complaint: Ext Problem - History obtained from History obtained from: Patient - History of Present Illness Location: Left - Additonal information Additional information: HPI from patient. Patient c/o sudden onset left wrist pain when she tripped on carpeting and fell earlier tonight. Patient is right hand dominant. She denies any other injury aside from the left wrist. Denies numbness, weakness. Pain is exacerbated with any attempts at movement of the left wrist, or palpation. Does not take any blood-thinning medication PD PAST MEDICAL HISTORY - Past Medical History Past Medical History: Yes Cardiovascular: High cholesterol Respiratory: Asthma Neuro: Parkinson's Endocrine/Autoimmune: None GI: None UPHOLSTERY TECH: None : None HEENT: None Psych: None Musculoskeletal: None Derm: None - Past Surgical History Past Surgical History: No - Present Medications Home Medications: Ambulatory Orders Medication Instructions Recorded Confirmed Albuterol Sulfate [Proair Hfa] 8.5 gm IH ONCE 07/11/13 01/19/15 Atorvastatin Calcium 40 mg PO DAILY 03/04/24 Carbidopa/Levodopa 1 tab PO DAILY 03/04/24 [Carbidopa-Levodopa 25-100 Tab] HYDROcod/ACETAM 5/325 [Topping 5/325] 1 - 2 tablet PO Q6H PRN #14 tablet 03/05/24 - Allergies Allergies/Adverse Reactions: Allergies Allergy/AdvReac Type Severity Reaction Status Date / Time alendronate sodium Allergy Unknown Verified 03/04/24 22:26 [From Fosamax] ibandronate sodium Allergy Unknown Verified 03/04/24 22:26 [From Boniva] Penicillins Allergy Unknown Verified 03/04/24 22:26 risedronate sodium Allergy Unknown Verified 03/04/24 22:26 [From Actonel] Sulfa (Sulfonamide Allergy Unknown Verified 03/04/24 22:26 Antibiotics) - Social History Does the pt smoke?: No Smoking Status: Never smoker Does the pt drink ETOH?: Yes Does the pt have substance abuse?: No - Immunizations Immunizations are current?: Yes - POLST Patient has POLST: No PD ED PE NORMAL - Vitals Vital signs reviewed: Yes - General General: Alert and oriented X 3, No acute distress, Well developed/nourished - HEENT HEENT: Atraumatic - Neck Neck: No bony TTP PD ED PE EXPANDED - Extremities Extremities: Deformity, Tenderness, Limited ROM, Bruising, Other (left wrist deformity with mild dorsal angulation and displacement (from long axis of FA). TTP, mild swelling and ecchymosis. LTS intact in hand, fingers. brisk capillary refill in fingertips) Results - Vitals Vitals: Oxygen O2 Source Room air - Rads (name of study) left wrist xrays Relevant Findings:: Prelim report reviewed, See rad report post-reduction left wrist xrays Relevant Findings:: EMP independent interpretation of test (I reviewed these images and my interpretation is no significant change compared to previous xrays) Procedures - Splint (location) - Minor Upper extremity left Splint applied by: Physician, Nurse Type of splint: Fiberglass, Sugar tong Other: Patient tolerated well, No complications, Neurovascular intact, Sling provided - Regional nerve block - Minor Nerve block site: Ulnar, Radial, Other (hematoma block (dorsal surface left wrist)) Right / left: Left Nerve block anesthesia: Lidocaine 1% Nerve block aftercare: Moderate Anesthesia PD Medical Decision Making - ED course Complexity details: reviewed results, re-evaluated patient, considered differential, d/w patient ED course: Presents with left distal radial fracture with ulnar styloid fracture, as well. I performed hematoma block as above (two separate injections of 1% lidocaine without epinephrine in to dorsal surface left wrist at site of deformity with blood on drawback prior to either injection; total of 8 cc injected). Unfortunately, patient's anesthesia was moderate; she had too much discomfort for more aggressive attempts at reduction (although able to tolerate some degree of my attempts to reduce the amount of angulation/displacement). Repeat xrays do not show any significant change in the displacement. Weighing risks/benefits, I did discuss conscious sedation with patient but recommended against it, as she is (now splinted) reporting feeling much better, is NVI, and degree of displacement on xrays is acceptable. She agrees with no further attempts at this time. Return precautions carefully reviewed including signs/symptoms of compartment syndrome. I instructed her to seek follow up with orthopedic surgery within 3-5 days. At this time there is no ortho salon assistant for [facility] but outpatient ortho f/u should be available. Patient is placed in sugar-tong splint (both ED RN and myself applied this), then placed in sling. Given take-home pack of vicodin and rx for same electronically submitted to patient's pharmacy of choice. Departure - Departure Disposition: 01 Home, Self Care Clinical Impression: Left wrist fracture Qualifiers: Encounter type: initial encounter Fracture type: closed Qualified Code(s): S62.102A - Fracture of unspecified carpal bone, left wrist, initial encounter for closed fracture Condition: Good Instructions: ED Fx Colles Wrist Redu Requ, ED Sling, ED Splint Care Fiberglass Follow-Up: Reginald Escalona MD [Provider Admit Priv/Credential] - Prescriptions: HYDROcod/ACETAM 5/325 [Topping 5/325] 1 - 2 tablet PO Q6H PRN #14 tablet PRN Reason: Pain Comments: I have electronically submitted a prescription for Vicodin (narcotic/opiate pain medication) to the [facility] in [place]. Follow-up with orthopedic surgery in the next 3 to 5 days. The contact information (office address, name, office phone number) for the on-call orthopedic surgeon for [facility] (Dr. Escalona) is included on these discharge instructions. I recommend that you contact that office when they open later this morning to see if they can accommodate a follow-up appointment within that timeframe. If not, contact your primary care provider or your insurance provider to inquire about the referral process. I am prescribing a short course of narcotic pain medication for you. These are potentially dangerous and addictive medications that should be used carefully. These medications may constipate you. Take an rxwr-cbm-bxxfgjk stool softener (docusate) twice daily with plenty of water while taking these medications. If you go 24 hours without a bowel movement, take isem-rls-tjdobsd miralax, per package instructions. Do not drink or drive while taking these medications. If you received narcotic or sedating medications while in the emergency department, do not drive for 24 hours. Store this medication in a safe, secure place and out of reach of children. It is a violation of federal law to give or sell this medication to another person or to use in a manner other than prescribed. The ED will not refill narcotic prescriptions, including prescriptions lost or stolen. To dispose of unwanted medications: 1. [facility] [address] in [place] has a medication drop box. They accept prescription medications (in pill form) Friday through Friday 9:00 a.m. to 5:00 p.m. 2. The [facility] accepts prescription medications (in pill form only) for disposal year round. Call for more information. 3. Contact the [facility] for the next [facility] sponsored prescription drug collection event. , [phone], or [phone]; Discharge Date/Time: 03/05/24 03:11
[2024-03-05] MEDS: LIDOCAINE 1% 2 ML VIAL SUBQ STA (01:12)
[2024-03-05 02:40] VITALS: BP 164/90
[2024-03-05] MEDS: HYDROcod/ACET 5/325 Prepack 4 PO STA (02:58)
--- NOTE | 2024-03-05 07:47 | XRAY Report ---
PROCEDURE: Wrist 3+V LT INDICATIONS: post-reduction TECHNIQUE: 3 views of the wrist were acquired. COMPARISON: 03/04/2024 reduction films. FINDINGS: Bones: Casted views. Slight interval improvement in alignment. Comminuted impacted distal radius fra cture with dorsal angulation and involvement of the articular surface associated distal radioulnar di slocation. Soft tissues: No suspicious soft tissue calcifications or masses. IMPRESSION: Slight improvement in alignment. Comminuted, impacted distal radius fracture with dorsal angulation a nd involvement of the articular surface, with associated distal radioulnar dislocation Findings are concordant with preliminary interpretation provided by [facility]. Reviewed by: Daren Hawk MD on 03/05/2024 7:46 AM PDT Approved by: Daren Hawk MD on 03/05/2024 7:46 AM PDT Station ID: [id number]
== END 2024-03-05 03:11 | disposition home or self-care (01) ==
LOC: ED 22:13
DX: S52.512A Displaced fracture of left radial styloid process, initial encounter for closed fracture (principal); W18.09XA Striking against other object with subsequent fall, initial encounter; Y92.003 Bedroom of unspecified non-institutional (private) residence as the place of occurrence of the external cause
CPT/HCPCS: 25605; 99283; 99284

== ENCOUNTER 2024-03-08 09:50 | Outpatient (CLI) | payer MEDICARE, OTHER ==
--- NOTE | 2024-03-08 11:30 | CT Report ---
PROCEDURE: Upper Extremity LT WO INDICATIONS: COLLES FX OF LEFT RADIUS TECHNIQUE: Noncontrast 2 mm axial sections were acquired through the elbow joint, with coronal and sagittal refo rmats. For radiation dose reduction, the following was used: automated exposure control, adjustment of mA and/or kV according to patient size. COMPARISON: Chest films dated 03/04/2024, left wrist dated 03/05/2024. FINDINGS: Image quality: Excellent. Bones: Impacted displaced markedly comminuted distal radius fracture involving the articular surface with dorsal angulation of the major distal fragment. Soft tissues: Intact IMPRESSION: Impacted, displaced, markedly comminuted distal radius fracture involving the articular surface with dorsal angulation of the major distal fragment. Reviewed by: Daren Hawk MD on 03/08/2024 11:29 AM PDT Approved by: Daren Hawk MD on 03/08/2024 11:29 AM PDT Station ID: [id number]
== END 2024-03-08 09:51 | disposition home or self-care (01) ==
LOC: DI 09:50
PROVIDERS: ATTEND Orthopaedic Surgery
DX: S52.532A Colles' fracture of left radius, initial encounter for closed fracture (principal)

== ENCOUNTER 2024-03-10 07:45 | Day surgery (SDC) | payer MEDICARE, OTHER ==
[2024-03-10] MEDS: LACTATED RINGERS 1,000 ML IV ONE (07:49)
[2024-03-10] MEDS ORDERED: ceFAZolin 2 GM VIAL ONE (07:52)
[2024-03-10] MEDS ORDERED: ACETAMINOPHEN 1,000 MG/100 ML 1,000 MG/100 ML BAG IV ONE (07:52)
[2024-03-10] MEDS ORDERED: BUPIVACAINE 0.25% PF 30 ML VIAL ONE (08:04)
[2024-03-10] MEDS: GABAPENTIN 400 MG CAPSULE ONE (08:05)
[2024-03-10] MEDS: CELECOXIB 100 MG CAPSULE PO ONE (08:05)
[2024-03-10] MEDS ORDERED: SCOPOLAMINE PATCH TOP ONE (08:13)
[2024-03-10] MEDS ORDERED: ROCURONIUM 50 MG/5 ML VIAL ONE (08:19)
[2024-03-10] MEDS ORDERED: fentaNYL 100 MCG/2 ML VIAL ONE (08:19)
[2024-03-10] MEDS ORDERED: PROPOFOL 200 MG/20 ML VIAL IVP ONE (08:19)
[2024-03-10] MEDS ORDERED: ePHEDrine 50 MG/ML VIAL IVP PRN (08:46)
[2024-03-10] MEDS ORDERED: ATROPINE ABBOJECT 1 MG/10 ML SYRINGE IVP PRN (08:46)
[2024-03-10] MEDS ORDERED: ONDANSETRON 4 MG/2 ML VIAL IVP PRN (08:46)
[2024-03-10] MEDS ORDERED: NALOXONE 0.4 MG/ML VIAL IVP PRN (08:46)
[2024-03-10] MEDS ORDERED: MORPHINE 2 MG/ML CARPUJECT IVP PRN (08:46)
[2024-03-10] MEDS ORDERED: fentaNYL 100 MCG/2 ML VIAL IVP PRN (08:46)
[2024-03-10] MEDS ORDERED: HYDROmorphone 0.5 MG/0.5 ML SYRINGE IVP PRN (08:46)
--- NOTE | 2024-03-10 08:46 | ANESTHESIA ---
Pre-Anesthesia VS, & Labs - Diagnosis left wrist fx - Procedure orif l wrist Vital Signs: Temp Pulse Resp BP Pulse Ox O2 Flow Rate 36 C L 92 24 116/85 H 96 03/10/24 08:18 03/10/24 08:18 03/10/24 08:18 03/10/24 08:18 03/10/24 08:18 Height: 5 ft 3 in Weight (kg): 42.7 kg Body Mass Index: 16.7 BMI Classification: Underweight - NPO >8 hours - Is Patient ?: No - Lab Results Lab results reviewed: Yes Home Medications and Allergies Home Medications: Ambulatory Orders Acetaminophen [Tylenol] 500 - 1,000 mg PO Q8H PRN 03/08/24 Ascorbic Acid [Vitamin C] 500 mg PO DAILY 03/08/24 Beclomethasone 40 Mcg [Qvar 40] 2 puffs INH BID 03/08/24 Quercetin 2 tab PO BID 03/08/24 Vitamin E (Dl,Tocopheryl Acet) [Vitamin E] 180 mg PO DAILY 03/08/24 cod liver oiL [Cod Liver Oil] 2 each PO DAILY 03/08/24 Albuterol Sulfate [Proair Hfa] 1 - 2 puffs IH PRN PRN 07/11/13 Atorvastatin Calcium 40 mg PO DAILY 03/04/24 Carbidopa/Levodopa [Carbidopa-Levodopa 25-100 Tab] 1 tab PO QID 03/04/24 Acetaminophen [Tylenol] 500 - 1,000 mg PO Q8H PRN 03/08/24 Ascorbic Acid [Vitamin C] 500 mg PO DAILY 03/08/24 Beclomethasone 40 Mcg [Qvar 40] 2 puffs INH BID 03/08/24 Quercetin 2 tab PO BID 03/08/24 Vitamin E (Dl,Tocopheryl Acet) [Vitamin E] 180 mg PO DAILY 03/08/24 cod liver oiL [Cod Liver Oil] 2 each PO DAILY 03/08/24 Allergies/Adverse Reactions: Allergies Allergy/AdvReac Type Severity Reaction Status Date / Time alendronate sodium Allergy Unknown Verified 03/04/24 22:26 [From Fosamax] ibandronate sodium Allergy Unknown Verified 03/04/24 22:26 [From Boniva] Penicillins Allergy Unknown Verified 03/04/24 22:26 risedronate sodium Allergy Unknown Verified 03/04/24 22:26 [From Actonel] Sulfa (Sulfonamide Allergy Unknown Verified 03/04/24 22:26 Antibiotics) Anes History & Medical History - Anesthetic History Anesthesia Complications: reports: No previous complications Family history of Anesthesia Complications: Denies - Medical History Cardiovascular: reports: High cholesterol Pulmonary: reports: Asthma (uses her inhalers, breathing "feels good" today) Gastrointestinal: reports: None Urinary: reports: None Neuro: reports: Parkinson's (levodopa/carbidopa q4hr 11-23-2-etc) Musculoskeletal: reports: Scoliosis, Chronic back pain Endocrine/Autoimmune: reports: None Blood Disorders: reports: None Skin: reports: None Smoking Status: Never smoker Psychosocial: reports: No issues indicated Results - EKG Results EKG Comparison: Normal EKG Exam General: Alert, Oriented x3 Dental: WNL Mouth Openin Fingerbreadth Neck Mobility: Reduced Mallampati classification: II Thyromental Distance: less than 4 cm Respiratory: Lungs clear Cardiovascular: Regular rate Plan Anesthesia Type: General Consent for Procedure(s) Verified and Reviewed: Yes Code Status: Attempt Resuscitation ASA classification: 3-Severe systemic disease Is this case an emergency?: No
[2024-03-10] MEDS ORDERED: LACTATED RINGERS 1,000 ML IV SCH (09:00)
[2024-03-10] MEDS ORDERED: DEXAMETHASONE 4 MG/ML VIAL ONE (09:07)
[2024-03-10] MEDS: BUPIVACAINE 0.25% PF 10 ML VIAL SUBQ ONE (09:25)
[2024-03-10] MEDS ORDERED: ONDANSETRON 4 MG/2 ML VIAL ONE (09:25)
[2024-03-10] MEDS ORDERED: SUGAMMADEX 200 MG/2 ML VIAL IVP ONE (09:26)
[2024-03-10] MEDS ORDERED: HYDROmorphone 1 MG/ML CARPUJECT ONE (09:30)
[2024-03-10] MEDS: LACTATED RINGERS 300 ML IV ONE (09:39)
[2024-03-10] MEDS ORDERED: oxyCODONE 5 MG TABLET PO PRN ×2 (09:50→09:53)
[2024-03-10] MEDS ORDERED: ACETAMINOPHEN 500 MG TABLET PO PRN ×2 (09:50→09:53)
[2024-03-10] MEDS ORDERED: ONDANSETRON ODT 4 MG TABLET TL PRN (09:50)
--- NOTE | 2024-03-10 10:02 | OPERATIVE REPORT ---
Operative Report - General Procedure Date: 03/10/24 Planned Procedure: closed versus open reduction and percutaneous pinning versus open reduction internal fixation Pre-Op Diagnosis: displaced left distal radius fracture Procedure Performed: closed reduction and percutaneous pinning of the left distal radius fracture - Procedure Note Primary Surgeon: Iqra Secondary Surgeon: Aisha Estimated Blood Loss (mL): 5 Complications: None - Other Other Information/Narrative: Op Note Date of Procedure: 03/10/24 Indication For Surgery: displaced unstable left distal radius fracture Pre-Op Diagnosis: displaced unstable left distal radius fracture Post-Op Diagnosis: displaced unstable left distal radius fracture Procedure Procedure(s): Open Reduction and Internal Fixation of the Closed Distal Radius Fracture Surgeon: Reginald Escalona MD Co-Surgeon: DO Anay Gracia PA physician Central Office Inspector was used throughout the entirety of the case. They assisted with room set up, patient positioning, draping, retraction, reduction, fixation and closure. They were essential for the success of the case. Anesthesia Type: General EBL: 5cc Specimens Removed: None Complications: None Implants/Grafts: 0.062 K wires Drains: No lines, drains, or airways are recorded for this episode. Findings: Displaced distal radius fracture, reduced and fixed Narrative: The patient was met in the pre-operative hold area. Consent was verified. Operative extremity was signed. All questions were answered. They were brought to the operating room and surrendered to anesthesia. Once general anesthesia was obtained they were prepped and draped. A time out was performed. initial fluoroscopic films of AP and lateral were obtained to determine the location of the fracture. At that time we performed a closed reduction with axial traction and flexion through the fracture site. We had a good reduction both in the AP and lateral and decided that we would pin this fracture for additional stability. A K wire was placed from the radial styloid proximally and ulnarly until it captured the far cortex. This gave us good fixation and placement of the wire was confirmed in AP and lateral. At this point we placed a second wire from the dorsal ulnar corner also proximally and radially holding 2 points of fixation. Again final fluoroscopic imaging was obtained. We are happy with the reduction and placement of our hardware. 10cc of 0.5% marcaine without epinephrine was placed. A sterile dressing and splint was applied. Postoperative Plan: Sugar-tong splint for 2 weeks follow-up in the orthopedics clinic in 2 weeks for splint removal radiographs and transition to a short arm cast. Reginald Escalona MD
[2024-03-10 11:20] VITALS: BP 145/67; O2SAT 97
--- NOTE | 2024-03-10 11:34 | ANESTHESIA POST OP EVALUATION ---
Anesthesia Post Eval - Post Anesthesia Eval Vitals: Last Vital Signs Temp 36.1 C L 03/10/24 11:17 Pulse 93 03/10/24 11:17 Resp 14 03/10/24 11:17 BP 145/67 H 03/10/24 11:17 Pulse Ox 97 03/10/24 11:17 O2 Flow Rate CV Function Including HR & BP: Stable Pain Control: Satisfactory Nausea & Vomiting: Negative Mental Status: Baseline Respiratory Status: Airway Patent Hydration Status: Satisfactory Anesthesia Complications: None
== END 2024-03-10 07:46 | disposition home or self-care (01) ==
LOC: SDS 07:45
PROVIDERS: ATTEND Orthopaedic Surgery
DX: S52.532A Colles' fracture of left radius, initial encounter for closed fracture (principal); R63.6 Underweight; Z68.1 Body mass index [BMI] 19.9 or less, adult; J45.909 Unspecified asthma, uncomplicated; G20.A1 Parkinson's disease without dyskinesia, without mention of fluctuations
CPT/HCPCS: 25606; A9270; C1713; J0131; J1170; J7120

== ENCOUNTER 2024-05-31 17:47 | Inpatient (IN) ==
--- NOTE | 2024-05-31 18:14 | ED Physician Documentation ---
PD HPI LOWER EXT INJURY Stated complaint Stated Complaint: GLF/RT HIP PX Chief complaint Chief Complaint: Trauma Ext History obtained from History obtained from: Patient and EMS History of Present Illness PD HPI LOW EXT INJURY LOCATION: Right and Hip Type of injury: Fall Where injury occurred: Home Timing - onset: Today (Fell within the hour or so prior to arrival. Unsteady gait due to her Parkinson's and general weakness. Usually assisted by her partner with a gait belt. Fell to the right side and was unable to move her hip or attempt standing due to pain. No other injury today.) Timing - details: Abrupt onset and Still present Improved by: Rest Worsened by: Moving and Palpating Associated symptoms: No Weakness or Numbness Contributing factors: No Anticoagulated or Prosthetic joint Similar symptoms before: Has not had sx before (No symptoms or injury of the hip recently. She has had falls recently with a left wrist fracture and a right humeral neck fracture within the last several months. Both are healed at this point with range of motion allowed.) Meds/Allgy Home Medications Ambulatory Orders Medication Instructions Recorded Confirmed albuterol sulfate 90 mcg/actuation 1 - 2 puff IH PRN PRN As Needed 07/11/13 05/10/24 aerosol inhaler (ProAir HFA) Per Provider Orders atorvastatin 40 mg tablet 40 mg PO DAILY 03/04/24 05/10/24 Ascorbic Acid [Vitamin C] 500 mg PO DAILY 03/08/24 05/10/24 Cod Liver Oil 2 ea PO DAILY 03/08/24 05/10/24 beclomethasone dipropionate 40 2 puff inhalation BID 03/08/24 05/10/24 mcg/actuation HFA breath activated aerosol (Qvar RediHaler) quercetin 500 mg capsule 2 tab PO BID 03/08/24 05/10/24 vitamin E (dl, acetate) 180 mg 180 mg PO DAILY 03/08/24 05/10/24 (400 unit) capsule ibuprofen 200 mg tablet (Advil) 400 mg PO Q8H PRN pain 04/18/24 05/10/24 carbidopa 25 mg-levodopa 100 mg 1.5 tab PO QID 05/06/24 05/10/24 tablet sertraline 25 mg tablet 25 mg PO QDAY 05/06/24 05/10/24 Allergies Allergies Allergy/AdvReac Type Severity Reaction Status Date / Time alendronate sodium (From Allergy Unknown Verified 05/31/24 17:58 Fosamax) ibandronate sodium (From Allergy Unknown Verified 05/31/24 17:58 Boniva) Penicillins Allergy Unknown Verified 05/31/24 17:58 risedronate sodium (From Allergy Unknown Verified 05/31/24 17:58 Actonel) Sulfa (Sulfonamide Allergy Unknown Verified 05/31/24 17:58 Antibiotics) FLU VACCINE Allergy Severe Unknown Uncoded 05/31/24 17:58 [facility] Medical History Medical History (Updated 05/31/24 @ 19:01 by Vinod Decker MD) Parkinson disease Family History Family History (Updated 05/24/24 @ 16:26 by Shar Victor MA) Father Family history of kidney disease Social History Social History Smoking Status: Never smoker Second hand tobacco smoke exposure: No Do you dip or chew tobacco?: No Do you vape?: No Living Condition: With spouse/s.o. Relationship: Home Mobility Equipment: Cane Do you feel safe in your home environment?: Yes Suffered physical, verbal, emotional, or financial abuse?: No History of Abuse: No ETOH Use: Wine Frequency: Occasional Substance Use: denies use POLST Patient has POLST: No Exam Constitutional normal general appearance and abnormal body habitus (thin) and (underweight) HENMT normocephalic and head/scalp atraumatic Neck/C-Spine cervical spine nontender and cervical full ROM noted Chest inspection of chest normal and palpation of chest normal Respiratory breath sounds equal bilaterally and normal respiratory effort Cardiovascular normal heart rate noted and regular rhythm noted Gastrointestinal abdomen soft to palpation and nontender to palpation Back/Pelvis no thoracic spine tenderness and no lumbar spine tenderness Extremities The right hip is acutely injured with pain on even slight attempted passive range of motion and palpation. Slight angulation of the direction of the knee and foot. No shortening. Prior nontender deformity noted of the left wrist and limited range of motion of the right shoulder from previous injuries. She has good distal pulses color and capillary refill in the toes. Good sensation. Mild baseline tremor consistent with Parkinson's. Well oriented. Neurology no focal motor deficit noted and no sensory deficits noted Psychiatry mental status grossly normal, oriented x3, thought process normal and cooperative Skin skin color normal Results Vitals Vitals: Vital Signs - 24 hr 05/31/24 17:51 05/31/24 18:05 05/31/24 18:32 Temperature 37.1 C Temperature Source Temporal Artery Scan Pulse Rate 97 H 88 Respiratory Rate 22 18 Blood Pressure 183/92 H 132/84 H O2 Saturation 97 98 O2 Source Room air Room air Pain Intensity 10 5 10 05/31/24 18:33 Temperature Temperature Source Pulse Rate Respiratory Rate Blood Pressure O2 Saturation O2 Source Pain Intensity 10 Oxygen O2 Source Room air Labs Labs: Laboratory Tests 05/31/24 19:05 WBC 12.6 H RBC 3.45 L Hgb 11.2 L Hct 33.0 L MCV 95.7 MCH 32.5 H MCHC 33.9 RDW 12.8 Plt Count 390 MPV 9.0 Neut # (Auto) 11.0 H Lymph # (Auto) 0.6 L Heard # (Auto) 0.9 Eos # (Auto) 0.0 Baso # (Auto) 0.0 Absolute Nucleated RBC 0.00 Nucleated RBC % 0.0 Rads (name of study) right hip: Relevant Findings:: Final report received and EMP independent interpretation of test (proximal right femoral neck vs intertrochanteric fracture with some angulation, but no shortening. ) PD Medical Decision Making ED course Complexity details: reviewed results (The patient had a high suspicion for hip fracture clinically. X-ray showed a clear femoral neck or anterior troches fracture. I reviewed it with Dr. Escalona who reviewed the films and requested to CT scan as better staging for surgery. Defers to hospitalist), considered differential (Accidental fall from Parkinson's and lost balance with hip fracture acutely. Will obtain basic labs. Ortho defers to hospitalist and I will call the not time nighttime hospitalist service.), d/w patient (The patient had a recent wrist fracture and shoulder fracture within the last several months. I described to her the difference with the hip being the difficulty with immobilization and fixation of it without surgical approach and she is understanding of that.) and d/w home sales consultant (I talked with Dr. Escalona for orthopedics and the nighttime hospitalist for [facility].) Discharge Plan Discharge Patient Disposition: 66 [facility] DC/Xfer Condition: Stable Clinical Impression: Fall as cause of accidental injury at home as place of occurrence, Parkinson's disease, Closed hip fracture Prescriptions: No Action albuterol sulfate [ProAir HFA] 8.5 GM HFA aerosol inhaler 1 - 2 puff IH PRN PRN (Reason: As Needed Per Provider Orders) atorvastatin 40 MG tablet 40 mg PO DAILY carbidopa-levodopa 25-100 mg tablet 1.5 tab PO QID Rx Instructions: Extra 1/4 tablet BID PRN Qvar RediHaler 100 PUFFS HFA aerosol breath activated 2 puff inhalation BID Ascorbic Acid [Vitamin C] 250 MG tablet 500 mg PO DAILY vitamin E (dl, acetate) 180 MG capsule 180 mg PO DAILY quercetin 500 MG capsule 2 tab PO BID Cod Liver Oil 1 EACH capsule 2 ea PO DAILY ibuprofen [Advil] 200 mg tablet 400 mg PO Q8H PRN (Reason: pain) sertraline 25 mg tablet 25 mg PO QDAY Interventions: ED Discharge Assessment Last Done: 05/31/24 18:05 Print Language: Yi
[2024-05-31] MEDS: KETOROLAC 15 MG/ML VIAL IVP STA (18:32)
[2024-05-31] MEDS: LORazepam 2 MG/ML VIAL IVP STA (18:32)
[2024-05-31] MEDS: HYDROmorphone 0.5 MG/0.5 ML SYRINGE IVP STA (18:33)
[2024-05-31 19:11] LABS: BASOPHILS % (AUTO) 0.3 %; EOSINOPHILS % (AUTO) 0.3 %; HGB - HEMOGLOBIN 11.2 g/dL (12.0-16.0); LYMPHOCYTES # (AUTO) 0.6 10^3/uL (1.5-3.5); MEAN CORPUSCULAR HEMOGLOBIN 32.5 pg (27.0-31.0); MEAN CORPUSCULAR HGB CONC 33.9 g/dL (32.0-36.0); MEAN CORPUSCULAR VOLUME 95.7 fL (81.0-99.0); MONOCYTES # (AUTO) 0.9 10^3/uL (0.0-1.0); MONOCYTES % (AUTO) 6.9 %; PLT - PLATELET COUNT 390 10^3/uL (130-450); RED BLOOD COUNT 3.45 10^6/uL (4.20-5.40); RED CELL DISTRIBUTION WIDTH 12.8 % (12.0-15.0); WHITE BLOOD COUNT 12.6 x10^3/uL (4.8-10.8)
--- NOTE | 2024-05-31 19:16 | XRAY Report ---
PROCEDURE: XR Hip w/Pelvis 2-3V RT INDICATIONS: fall with hip pain TECHNIQUE: AP view the pelvis, lateral view of the right hip COMPARISON: None. FINDINGS: Severe osseous demineralization. Acute, varus impacted right proximal femoral basicervical fracture w ith intertrochanteric extension and involvement of the greater/lesser trochanters. There is approxima tely 90 degrees clockwise rotation of the femoral head at the right hip joint relative to the acetabu lum. There may be an additional varus impacted subcapital left femoral fracture. Severe lower lumbar osteoarthrosis. Mild bilateral sacroiliac joint osteophytes. Evaluation of the sa kayleen obscured due to overlying bowel gas. Vascular calcifications. IMPRESSION: 1.Severe varus impacted right proximal femoral basicervical fracture with intertrochanteric extension . 2.Possible additional impacted left femoral subcapital fracture. Reviewed by: Gabriel Gordon MD on 05/31/2024 7:15 PM PST Approved by: Gabriel Gordon MD on 05/31/2024 7:15 PM PST Station ID: [id number]
--- NOTE | 2024-05-31 19:18 | XRAY Report ---
PROCEDURE: XR Chest 1V INDICATIONS: fall TECHNIQUE: One view of the chest was acquired. COMPARISON: Right shoulder x-ray 04/27/2024 FINDINGS: Surgical changes and devices: None. Lungs and pleura: No pleural effusions or pneumothorax. No consolidation. Mediastinum: Mediastinal contours appear normal. Heart size is normal. Bones and chest wall: Reidentified right proximal humeral surgical neck fracture with extension to th e greater lesser tuberosities and approximately 180 degree rotation of the dominant humeral head rela tive to the glenoid, similar to 04/27/2024. IMPRESSION: No acute cardiothoracic process. Reviewed by: Gabriel Gordon MD on 05/31/2024 7:17 PM PST Approved by: Gabriel Gordon MD on 05/31/2024 7:17 PM PST Station ID: [id number]
[2024-05-31 19:25] LABS: LIPASE 17 U/L (11-82); MAGNESIUM 2.1 mg/dL (1.7-2.3)
[2024-05-31 19:26] LABS: ALBUMIN 3.9 g/dL (3.2-5.5); ALBUMIN/GLOBULIN RATIO 1.4 (1.0-2.2); ALKALINE PHOSPHATASE 119 IU/L (42-121); ALT ALANINE AMINOTRANSFERASE < 3 IU/L (10-60); AST ASPARTATE AMINOTRANSFERASE 13 IU/L (10-42); BILIRUBIN,TOTAL 0.5 mg/dL (0.2-1.0); BUN - BLOOD UREA NITROGEN 19 mg/dL (6-20); CALCIUM 8.9 mg/dL (8.5-10.3); CARBON DIOXIDE - CO2 27 mmol/L (21-32); CHLORIDE 105 mmol/L (101-111); CREATININE 0.4 mg/dL (0.6-1.3); GFR - MDRD 154 (>89); GLUCOSE 121 mg/dL (74-104); POTASSIUM 3.6 mmol/L (3.5-4.5); SODIUM 138 mmol/L (135-145); TOTAL PROTEIN 6.6 g/dL (6.4-8.9)
[2024-05-31] MEDS: LIDOCAINE PATCH 4% TOP STA (19:46)
--- NOTE | 2024-05-31 20:02 | HISTORY & PHYSICAL EXAMINATION ---
Chief Complaint Chief Complaint Chief Complaint: hip pain after fall History of Present Illness Admitted From Admitted From:: Home History Obtained From Records Reviewed: Yes History obtained from: ED physician, Patient Exam Limitations: Telemedicine History of Present Illness HPI Comment/Other: Mrs. Ma is a 79yo F with a history of Parkinson's that presented for evaluation of hip pain after a fall. She has had worsening balance and gait problems for the past 4 months. She has had several falls. On the day of presentation, she explained that she lost her footing and fell on her rightside. She denied any head trauma or loss of consciousness. After the fall she was unable to move her right leg or bare weight due to pain. In the ED she was found to have a right intertronchanteric fracture of her right hip. Orthopedic surgery reviewed her case and agreed to take her to surgery. Due to the need for surgical management, I will admit the patient to the hospitalist service for further management. Review of Systems Status of ROS: 10 or more systems reviewed and unremarkable except as noted in history and below [facility] Medical History Medical History (Updated 05/31/24 @ 19:01 by Vinod Decker MD) Parkinson disease Family History Family History (Updated 05/24/24 @ 16:26 by Shar Victor MA) Father Family history of kidney disease Social History Social History Smoking Status: Never smoker Second hand tobacco smoke exposure: No Do you dip or chew tobacco?: No Do you vape?: No Living Condition: With spouse/s.o. Relationship: Home Mobility Equipment: Cane Do you feel safe in your home environment?: Yes Suffered physical, verbal, emotional, or financial abuse?: No History of Abuse: No ETOH Use: Wine Frequency: Occasional Substance Use: denies use POLST Patient has POLST: No Meds/Allgy Home Medications Ambulatory Orders Medication Instructions Recorded Confirmed albuterol sulfate 90 mcg/actuation 1 - 2 puff IH PRN PRN As Needed 07/11/13 05/10/24 aerosol inhaler (ProAir HFA) Per Provider Orders atorvastatin 40 mg tablet 40 mg PO DAILY 03/04/24 05/10/24 Ascorbic Acid [Vitamin C] 500 mg PO DAILY 03/08/24 05/10/24 Cod Liver Oil 2 ea PO DAILY 03/08/24 05/10/24 beclomethasone dipropionate 40 2 puff inhalation BID 03/08/24 05/10/24 mcg/actuation HFA breath activated aerosol (Qvar RediHaler) quercetin 500 mg capsule 2 tab PO BID 03/08/24 05/10/24 vitamin E (dl, acetate) 180 mg 180 mg PO DAILY 03/08/24 05/10/24 (400 unit) capsule ibuprofen 200 mg tablet (Advil) 400 mg PO Q8H PRN pain 04/18/24 05/10/24 carbidopa 25 mg-levodopa 100 mg 1.5 tab PO QID 05/06/24 05/10/24 tablet sertraline 25 mg tablet 25 mg PO QDAY 05/06/24 05/10/24 Allergies Allergies Allergy/AdvReac Type Severity Reaction Status Date / Time alendronate sodium (From Allergy Unknown Verified 05/31/24 17:58 Fosamax) ibandronate sodium (From Allergy Unknown Verified 05/31/24 17:58 Boniva) Penicillins Allergy Unknown Verified 05/31/24 17:58 risedronate sodium (From Allergy Unknown Verified 05/31/24 17:58 Actonel) Sulfa (Sulfonamide Allergy Unknown Verified 05/31/24 17:58 Antibiotics) FLU VACCINE Allergy Severe Unknown Uncoded 05/31/24 17:58 Exam Exam Examination, as recorded, was obtained from patient and staff reported information, as well as peripheral observation. Constitutional normal general appearance and no apparent distress HENMT normocephalic and head/scalp atraumatic Eyes EOMs intact bilaterally Chest inspection of chest normal Respiratory normal respiratory effort Cardiovascular normal heart rate noted and regular rhythm noted Back/Pelvis spine normal to inspection Extremities abnormal to inspection, abnormal ROM noted and deformity noted right LE shorten and rotated Neurology actuarial analyst II-XII intact, movement abnormality noted other and GCS 15 tremor Psychiatry oriented x3 Conclusion/Plan Problem List (1) Closed hip fracture: Plan: right hip fracture s/p ground level fall, will continue with management as follows: - I have reviewed Xray of hip myself, consistent with right intertrochanteric fracture and possible subcapital fracture - Case discussed with ED physician and orthopedic surgeon, agree with plan to proceed with surgical intervention - CT hip ordered per ortho's request, for complete evaluation of hip to determine surgical approach: results are pending -I have place patient on complete bed rest -I will initiate pain regimen of schedule tylenol 1gram and toradol 15mg x 3 doses, i will also order morphine for breakthrough pain -will monitor drug levels and clinical response to guide adjustments and avoid toxicity - I have reviewed patient's operative risk, RCRI score is low indicating low risk of major cardiac complication postoperatively -In anticipation for surgery will keep patient , nothing by mouth except medications after midnight (2) Parkinson's disease: Plan: Appears to be progressing, increase in falls over the past 6 months, persistent tremor -home medication reviewed. -Sinemet 25-100mg will be resumed -sertraline 25mg daily will be resumed Lab Results Lab results reviewed: Yes 05/31/24 19:05 05/31/24 19:05 Diagnostic Imaging Results Diagnostic Imaging Results: positive Final report reviewed Core Measures Anticipated LOS I expect patient to be DC'd or transferred within 96 hours.: Yes DVT/VTE - Prophylaxis VTE/DVT Device ordered at admit?: Yes Telemedicine Consult Details Provider Location & Consult Time Telemedicine consultation conducted via videoconferencing?: Yes
[2024-05-31] MEDS ORDERED: ONDANSETRON 4 MG/2 ML VIAL IVP PRN (20:14)
[2024-05-31] MEDS ORDERED: SODIUM CHLORIDE FLUSH 0.9% 10 ML SYRINGE IVP PRN (20:14)
[2024-05-31] MEDS ORDERED: ONDANSETRON ODT 4 MG TABLET TL PRN (20:14)
--- NOTE | 2024-05-31 20:23 | CT Report ---
PROCEDURE: CT Lower Extremity RT WO INDICATIONS: hip fracture; CT on Ortho request TECHNIQUE: Noncontrast 3-mm axial sections acquired from the distal tibial shaft to the talar dome, with coronal and sagittal reformats. For radiation dose reduction, the following was used: automated exposure c ontrol, adjustment of mA and/or kV according to patient size. COMPARISON: Same x-ray. FINDINGS: Image quality: Excellent. Bones: Intertrochanteric fracture of the right femur. There is posterior displacement of the greater trochanter and mild displacement of the lesser trochanter. There is increased apex lateral angulatio n centered at the fracture line. Convex left rotoscoliosis is partially visualized. No second fractur e is identified. Soft tissues: 7.3 x 2.4 cm hematoma posterior to the greater trochanter. Impression: Comminuted, angulated and displaced fracture of the right intertrochanteric femur. Reviewed by: Benigno Lewis MD on 05/31/2024 8:22 PM PST Approved by: Benigno Lewis MD on 05/31/2024 8:22 PM PST Station ID: [id number]
[2024-05-31] MEDS: ACETAMINOPHEN 500 MG TABLET PO SCH (21:26)
[2024-05-31] MEDS: CARBIDOPA/LEVODOPA 25 MG/100 MG TABLET PO SCH (21:27)
[2024-05-31] MEDS: QUERCETIN 500 MG PO SCH (21:28)
--- NOTE | 2024-05-31 21:39 | PREOP HISTORY & PHYSICAL ---
Surgical History & Physical Chief Complaint/HPI History of Present Illness: CC: Right Hip Fracture HPI: 79yo F with a history of Parkinson's, hypertension, hyperlipidemia and osteoporosis presents to the emergency department for a ground-level fall. She was attempting to sit down on a chair and fell onto her right hip. Denies hitting her head. She was unable to get up and she was brought to the emergency department where they obtained radiographs. It was there that she was found to have a right intertrochanteric fracture. Orthopedics was then consulted. She reports she has isolated pain to the right hip. No loss of function. Over the last couple months she has had worsening balance and gait problems. She is experienced multiple falls and has fractured her wrist and proximal humerus. Home Meds and Allergies Active Medications Generic Name Dose Route Start Last Admin Trade Name Freq PRN Reason Stop Dose Admin Acetaminophen 1,000 mg 05/31/24 21:00 05/31/24 21:26 Acetaminophen 500 Mg Tablet PO 06/01/24 09:01 1,000 mg Q6H SHANNAN Administration Atorvastatin Calcium 40 mg 06/01/24 09:00 Atorvastatin 40 Mg Tablet PO DAILY SHANNAN Carbidopa/Levodopa 1.5 tab 05/31/24 21:00 05/31/24 21:27 Carbidopa/Levodopa 25 Mg/100 Mg Tablet PO 1.5 tab QID SHANNAN Administration Carbidopa/Levodopa 0.25 tab 05/31/24 20:34 Carbidopa/Levodopa 25 Mg/100 Mg Tablet PO BID PRN PARKINSON Ketorolac Tromethamine 15 mg 06/01/24 02:30 Ketorolac 15 Mg/Ml Vial IVP 06/01/24 18:31 Q8H SHANNAN Morphine Sulfate 2 mg 05/31/24 20:14 Morphine 2 Mg/Ml Carpuject IVP Q2HR PRN Pain 8 to 10 Non-Formulary Medication 2 tab 05/31/24 21:00 05/31/24 21:28 Quercetin PO Not Given BID SHANNAN Ondansetron HCl 4 mg 05/31/24 20:14 Ondansetron 4 Mg/2 Ml Vial IVP Q6HR PRN Nausea / Vomiting Ondansetron HCl 4 mg 05/31/24 20:14 Ondansetron Odt 4 Mg Tablet TL Q6HR PRN Nausea / Vomiting Sertraline HCl 25 mg 06/01/24 09:00 Sertraline 25 Mg Tablet PO DAILY SHANNAN Sodium Chloride 10 ml 05/31/24 20:14 Sodium Chloride Flush 0.9% 10 Ml Syringe IVP PRN PRN NEEDED PER PROVIDER ORDERS Sodium Chloride 10 ml 06/01/24 01:00 Sodium Chloride Flush 0.9% 10 Ml Syringe IVP 0100,0900,1700 SHANNAN albuterol sulfate 90 mcg/actuation aerosol inhaler (ProAir HFA) 1 - 2 puff IH PRN PRN As Needed Per Provider Orders 07/11/13 atorvastatin 40 mg tablet 40 mg PO DAILY 03/04/24 Ascorbic Acid [Vitamin C] 500 mg PO DAILY 03/08/24 Cod Liver Oil 2 ea PO DAILY 03/08/24 beclomethasone dipropionate 40 mcg/actuation HFA breath activated aerosol (Qvar RediHaler) 2 puff inhalation BID 03/08/24 quercetin 500 mg capsule 2 tab PO BID 03/08/24 vitamin E (dl, acetate) 180 mg (400 unit) capsule 180 mg PO DAILY 03/08/24 ibuprofen 200 mg tablet (Advil) 400 mg PO Q8H PRN pain 04/18/24 carbidopa 25 mg-levodopa 100 mg tablet 1.5 tab PO QID 05/06/24 sertraline 25 mg tablet 25 mg PO QDAY 05/06/24 Allergies Allergy/AdvReac Type Severity Reaction Status Date / Time alendronate sodium (From Allergy Unknown Verified 05/31/24 17:58 Fosamax) ibandronate sodium (From Allergy Unknown Verified 05/31/24 17:58 Boniva) Penicillins Allergy Unknown Verified 05/31/24 17:58 risedronate sodium (From Allergy Unknown Verified 05/31/24 17:58 Actonel) Sulfa (Sulfonamide Allergy Unknown Verified 05/31/24 17:58 Antibiotics) FLU VACCINE Allergy Severe Unknown Uncoded 05/31/24 17:58 Vital Signs O2 Saturation: 96 Patient Review Patient Review Pertinent Tests Reviewed [facility] Medical History Medical History (Updated 05/31/24 @ 19:01 by Vinod Decker MD) Parkinson disease Family History Family History (Updated 05/24/24 @ 16:26 by Shar Victor MA) Father Family history of kidney disease Social History Social History Smoking Status: Never smoker Second hand tobacco smoke exposure: No Do you dip or chew tobacco?: No Do you vape?: No Living Condition: With spouse/s.o. Relationship: Level: Assisted Home Mobility Equipment: Walker and Wheelchair Do you feel safe in your home environment?: Yes Suffered physical, verbal, emotional, or financial abuse?: No History of Abuse: No ETOH Use: Wine Frequency: Occasional Substance Use: denies use POLST Patient has POLST: No Exam Exam RIGHT Hip: Inspection: No erythema, swelling, bruising, atrophy. Leg externally rotated. ROM deferred due to known fracture Neurovascular exam: Fires ta/gc/ehl; SILT s/s/sp/dp/t, 2+ dp Imaging: RIGHT hip radiographs on May 31, 2024: Demonstrates a displaced comminuted right hip intertrochanteric fracture. Assessment & Plan Assessment & Plan Assessment & Plan: 79yo F with a history of Parkinson's, hypertension, hyperlipidemia and osteoporosis presents with a right hip intertrochanteric fracture. I explained to the patient that it is recommended that she undergoes surgical intervention for early ambulation and recovery. The risk, benefits and alternatives of the procedure were discussed with the patient include bleeding, infection, damage surrounding structures, ongoing pain, malunion, nonunion, need for additional surgeries, loss of mobility, anesthesia risk such as heart attack, stroke and . Patient understood these risks and want to move forward with the procedure. Patient was signed and consented in the emergency department. She will be admitted to the internal medicine team for medical management. She will undergo operative fixation of the right hip on June 01, 2024. PLAN: Internal medicine admission Nonweightbearing right lower extremity N.p.o. at midnight Operative management of the right hip on June 01, 2024 Postoperatively, she will be admitted to the internal medicine team. She will most likely require SNF placement. The patient had the treatment plan explained, questions answered and seemed satisfied with the plan. There were no apparent barriers to communication. The documentation in this note may have been entered with the assistance of computer voice recognition and dictation software. Therefore, it may contain unintended errors in text, spelling, punctuation, or grammar. Reginald Escalona MD Orthopedic Surgeon
[2024-05-31] MEDS: MORPHINE 2 MG/ML CARPUJECT IVP PRN (23:47)
[2024-05-31] MEDS: SODIUM CHLORIDE FLUSH 0.9% 10 ML SYRINGE IVP SCH (23:48)
[2024-06-01] MEDS: SODIUM CHLORIDE 0.9% 1,000 ML IV SCH (01:44)
[2024-06-01] MEDS: KETOROLAC 15 MG/ML VIAL IVP SCH ×2 (02:07→11:14)
--- NOTE | 2024-06-01 08:45 | PROVIDER PROGRESS NOTE ---
Subjective Subjective Subjective: Patient is a 79-year-old female with a history of Parkinson's on carbidopa/levodopa who presents after a ground-level fall. She states that over the last 3 to 4 weeks, she has been experiencing more falls. She does see a neurologist, Dr. Jones, out of [place]. 2 weeks ago he recently increased her carbidopa/levodopa dose to 2 tabs 4 times daily because of her increasing falls. However, she has noticed increased hallucinations with this increased dose. Prior to coming in, she said that she lost footing, and fell on her right side. CT does show comminuted, angulated and displaced fracture of the right intertrochanteric femur. Orthopedic surgery was spoken with, and plan is to take her to the operating room today. Her pain is well-controlled on her current regimen of scheduled Toradol every 8 hours, as well as morphine as needed. We spoke about likely SNF placement after her surgery, and she is agreeable. Her brother is also at bedside, and would also like her to go to SNF. She typically lives alone, but her brother is staying with her at this time. Besides the Parkinson's, patient just takes Motrin as needed for pains. She does have a remote history of asthma with very infrequent albuterol use. Current Medications Current Medications Current Medications: Current Medications Generic Name Dose Route Start Last Admin Trade Name Freq PRN Reason Stop Dose Admin Acetaminophen 1,000 mg 05/31/24 21:00 06/01/24 02:04 Acetaminophen 500 Mg Tablet PO 06/01/24 09:01 1,000 mg Q6H SHANNAN Administration Atorvastatin Calcium 40 mg 06/01/24 21:00 Atorvastatin 40 Mg Tablet PO HS SHANNAN Carbidopa/Levodopa 1.5 tab 05/31/24 21:00 05/31/24 21:27 Carbidopa/Levodopa 25 Mg/100 Mg Tablet PO 1.5 tab QID SHANNAN Administration Carbidopa/Levodopa 0.25 tab 05/31/24 20:34 Carbidopa/Levodopa 25 Mg/100 Mg Tablet PO BID PRN PARKINSON Sodium Chloride 1,000 mls @ 100 mls/hr 06/01/24 02:00 06/01/24 01:44 Normal Saline 0.9% IV 100 mls/hr .Q10H SHANNAN Administration Ketorolac Tromethamine 15 mg 06/01/24 02:30 06/01/24 02:07 Ketorolac 15 Mg/Ml Vial IVP 06/01/24 18:31 15 mg Q8H SHANNAN Administration Morphine Sulfate 2 mg 05/31/24 20:14 05/31/24 23:47 Morphine 2 Mg/Ml Carpuject IVP 2 mg Q2HR PRN Administration Pain 8 to 10 Ondansetron HCl 4 mg 05/31/24 20:14 Ondansetron 4 Mg/2 Ml Vial IVP Q6HR PRN Nausea / Vomiting Ondansetron HCl 4 mg 05/31/24 20:14 Ondansetron Odt 4 Mg Tablet TL Q6HR PRN Nausea / Vomiting Patient Own Med 2 each 06/01/24 09:00 Quercetin 500 Mg PO Capsule BID SHANNAN Sertraline HCl 25 mg 06/01/24 09:00 Sertraline 25 Mg Tablet PO DAILY SHANNAN Sodium Chloride 10 ml 05/31/24 20:14 Sodium Chloride Flush 0.9% 10 Ml Syringe IVP PRN PRN NEEDED PER PROVIDER ORDERS Sodium Chloride 10 ml 06/01/24 01:00 05/31/24 23:48 Sodium Chloride Flush 0.9% 10 Ml Syringe IVP 10 ml 0100,0900,1700 SHANNAN Administration Objective Vital Signs/Intake & Output Reviewed Vital Signs: Yes Vital Signs: Vital Signs x48h Temp Pulse Resp BP Pulse Ox 06/01/24 05:30 97.9 F 79 14 129/63 98 Intake & Output: Intake & Output 05/29/24 05/30/24 05/31/24 06/01/24 23:59 23:59 23:59 23:59 Intake Total 40 / 40 Output Total 400 / 400 Balance 40 / 40 -400 / -400 Weight (kg) 43 kg Objective General Appearance: positive No acute distress, Alert and Other (tremor of head) Eyes Bilateral: positive PERRL, EOMI and No scleral icterus ENT: positive ENT inspection nml, Pharynx nml and No signs of dehydration Neck: positive Nml inspection, Thyroid nml and No JVD Respiratory: positive Chest non-tender, No respiratory distress and Breath sounds nml Cardiovascular: positive Regular rate & rhythm and No murmur; negative Tachycardia Abdomen: positive Non-tender, No organomegaly, Nml bowel sounds and No distention; negative Tenderness, Guarding, Rebound, Hepatomegaly or Splenomegaly Back: positive Nml inspection; negative CVA tenderness (R) or CVA tenderness (L) Skin: positive Color nml, No rash, Warm and Dry Extremities: negative Non-tender or Full ROM (RLE rotated, unable to move due to pain ) Neurologic/Psychiatric: positive Oriented x3 and Mood/affect nml Lab Results 05/31/24 19:05 05/31/24 19:05 Other Labs: Lab Results x24hrs 05/31/24 Range/Units 19:05 WBC 12.6 H (4.8-10.8) x10^3/uL RBC 3.45 L (4.20-5.40) 10^6/uL Hgb 11.2 L (12.0-16.0) g/dL Hct 33.0 L (37.0-47.0) % MCV 95.7 (81.0-99.0) fL MCH 32.5 H (27.0-31.0) pg MCHC 33.9 (32.0-36.0) g/dL RDW 12.8 (12.0-15.0) % Plt Count 390 (130-450) 10^3/uL MPV 9.0 (7.9-10.8) fL Neut # (Auto) 11.0 H (1.5-6.6) 10^3/uL Lymph # (Auto) 0.6 L (1.5-3.5) 10^3/uL [place] # (Auto) 0.9 (0.0-1.0) 10^3/uL Eos # (Auto) 0.0 (0.0-0.7) 10^3/uL Baso # (Auto) 0.0 (0.0-0.1) 10^3/uL Absolute Nucleated RBC 0.00 x10^3/uL Nucleated RBC % 0.0 /100WBC Sodium 138 (135-145) mmol/L Potassium 3.6 (3.5-4.5) mmol/L Chloride 105 (101-111) mmol/L Carbon Dioxide 27 (21-32) mmol/L Anion Gap 6.0 (6-13) BUN 19 (6-20) mg/dL Creatinine 0.4 L (0.6-1.3) mg/dL Estimated GFR (MDRD) 154 (>89) Glucose 121 H (74-104) mg/dL Calcium 8.9 (8.5-10.3) mg/dL Magnesium 2.1 (1.7-2.3) mg/dL Total Bilirubin 0.5 (0.2-1.0) mg/dL AST 13 (10-42) IU/L ALT < 3 L (10-60) IU/L Alkaline Phosphatase 119 (42-121) IU/L Total Protein 6.6 (6.4-8.9) g/dL Albumin 3.9 (3.2-5.5) g/dL Globulin 2.7 (2.1-4.2) g/dL Albumin/Globulin Ratio 1.4 (1.0-2.2) Lipase 17 (11-82) U/L Diagnostic Imaging Diagnostic Imaging Results: positive Final report reviewed Assessment/Plan Problem List (1) Closed hip fracture: Impression: Patient with ground-level fall. Increased falls in the last few weeks, attributed to her Parkinson's disease. CT scan shows comminuted, angulated, displaced fracture of right intertrochanteric femur. Orthopedic surgery to perform surgery today. Will likely need PT, OT after, followed by SNF placement. Patient agreeable. Qualifiers: Encounter type: initial encounter Laterality: right Qualified Code(s): S72.001A - Fracture of unspecified part of neck of right femur, initial encounter for closed fracture (2) Parkinson's disease: Impression: Patient with a history of Parkinson's disease on Sinemet. Follows with Dr. Jones in [place]; will call him and update him on the above. Qualifiers: Dyskinesia presence: unspecified whether dyskinesia Fluctuating manifestations: with fluctuating manifestations Qualified Code(s): G20.A2 - Parkinson's disease without dyskinesia, with fluctuations
[2024-06-01] MEDS: SERTRALINE 25 MG TABLET PO SCH (09:01)
[2024-06-01] MEDS: QUERCETIN 500 MG PO SCH (09:02)
--- NOTE | 2024-06-01 10:29 | PHARMACY PROGRESS NOTE ---
Best Possible Medication History Admit Date and Time: 06/01/24 1008 Home Medications Medication Instructions Recorded Confirmed Type atorvastatin 40 mg tablet 40 mg PO QPM 03/04/24 06/01/24 History beclomethasone dipropionate 40 2 puff inhalation BID 03/08/24 06/01/24 History mcg/actuation HFA breath activated aerosol (Qvar RediHaler) quercetin 500 mg capsule 2 tab PO DAILY 03/08/24 06/01/24 History vitamin E (dl, acetate) 180 mg 180 mg PO DAILY 03/08/24 06/01/24 History (400 unit) capsule ibuprofen 200 mg tablet (Advil) 400 mg PO Q8H PRN pain 04/18/24 06/01/24 History carbidopa 25 mg-levodopa 100 mg 2 tab PO QID 05/06/24 06/01/24 History tablet albuterol sulfate 90 mcg/actuation 1 - 2 puff inhalation Q4-6H PRN 06/01/24 06/01/24 History aerosol inhaler (Ventolin HFA) per Providers orders ascorbic acid (vitamin C) 500 mg 500 mg PO DAILY 06/01/24 06/01/24 History capsule cod liver oil 2 cap PO DAILY 06/01/24 06/01/24 History Processed by: Pharmacy (Medication reconciliation completed by pharmacy technician program directorTha) Medications reviewed in ED?: No Medication History completed: Yes Patient Interview: Completed Secondary Source(s): Insurance records [facility] Statement: As the person ultimately responsible for medication therapy, providers are able to order a medication from an existing home medication list in [facility] via the "Reconcile Routine" prior to Confirmation of that medication by integrated logistics support manager. Such practice is discouraged except when the physician, in their clinical judgment, deems that a medical need exists for a medication without regard to previous use.
--- NOTE | 2024-06-01 11:19 | ANESTHESIA PROCEDURE NOTE ---
Pre-Anesthesia VS, & Labs Diagnosis Surgical Diagnosis:: right hip fracture Procedure Procedure: right hip nailing Vitals Vital Signs: Temp Pulse Resp BP Pulse Ox 36.6 C 85 20 144/71 H 98 06/01/24 08:39 06/01/24 08:39 06/01/24 08:39 06/01/24 08:39 06/01/24 08:39 Height (in): 5 ft Weight (kg): 43 kg Body Mass Index: 18.5 BMI Classification: Normal NPO NPO: >8 hours Is Patient ?: No Lab Results Current Lab Results: Laboratory Tests 05/31/24 19:05: WBC 12.6 H, RBC 3.45 L, Hgb 11.2 L, Hct 33.0 L, MCV 95.7, MCH 32.5 H, MCHC 33.9, RDW 12.8, Plt Count 390, MPV 9.0, Neut # (Auto) 11.0 H, Lymph # (Auto) 0.6 L, [place] # (Auto) 0.9, Eos # (Auto) 0.0, Baso # (Auto) 0.0, Absolute Nucleated RBC 0.00, Nucleated RBC % 0.0, Sodium 138, Potassium 3.6, Chloride 105, Carbon Dioxide 27, Anion Gap 6.0, BUN 19, Creatinine 0.4 L, Estimated GFR (MDRD) 154, Glucose 121 H, Calcium 8.9, Magnesium 2.1, Total Bilirubin 0.5, AST 13, ALT < 3 L, Alkaline Phosphatase 119, Total Protein 6.6, Albumin 3.9, Globulin 2.7, Albumin/Globulin Ratio 1.4, Lipase 17 Lab results reviewed: Yes 05/31/24 19:05 05/31/24 19:05 Meds/Allgy Home Medications Ambulatory Orders Medication Instructions Recorded Confirmed atorvastatin 40 mg tablet 40 mg PO QPM 03/04/24 06/01/24 beclomethasone dipropionate 40 2 puff inhalation BID 03/08/24 06/01/24 mcg/actuation HFA breath activated aerosol (Qvar RediHaler) quercetin 500 mg capsule 2 tab PO DAILY 03/08/24 06/01/24 vitamin E (dl, acetate) 180 mg 180 mg PO DAILY 03/08/24 06/01/24 (400 unit) capsule ibuprofen 200 mg tablet (Advil) 400 mg PO Q8H PRN pain 04/18/24 06/01/24 carbidopa 25 mg-levodopa 100 mg 2 tab PO QID 05/06/24 06/01/24 tablet albuterol sulfate 90 mcg/actuation 1 - 2 puff inhalation Q4-6H PRN 06/01/24 06/01/24 aerosol inhaler (Ventolin HFA) per Providers orders ascorbic acid (vitamin C) 500 mg 500 mg PO DAILY 06/01/24 06/01/24 capsule cod liver oil 2 cap PO DAILY 06/01/24 06/01/24 Allergies Allergies Allergy/AdvReac Type Severity Reaction Status Date / Time alendronate sodium (From Allergy Unknown Verified 05/31/24 17:58 Fosamax) ibandronate sodium (From Allergy Unknown Verified 05/31/24 17:58 Boniva) Penicillins Allergy Unknown Verified 05/31/24 17:58 risedronate sodium (From Allergy Unknown Verified 05/31/24 17:58 Actonel) Sulfa (Sulfonamide Allergy Unknown Verified 05/31/24 17:58 Antibiotics) FLU VACCINE Allergy Severe Unknown Uncoded 05/31/24 17:58 [facility] Medical History Medical History (Updated 06/01/24 @ 11:17 by Manohar Francisco CRNA) Parkinson disease Family History Family History (Updated 05/24/24 @ 16:26 by Shar Victor MA) Father Family history of kidney disease Social History Social History Smoking Status: Never smoker Second hand tobacco smoke exposure: No Do you dip or chew tobacco?: No Do you vape?: No Living Condition: With spouse/s.o. Relationship: Level: Assisted Home Mobility Equipment: Walker and Wheelchair Do you feel safe in your home environment?: Yes Suffered physical, verbal, emotional, or financial abuse?: No History of Abuse: No ETOH Use: Wine Frequency: Occasional Substance Use: denies use POLST Patient has POLST: No Anesthesia Exam (Expanded) Exam General: Alert Dental: WNL Mouth Openin Fingerbreadth Neck Mobility: Reduced Mallampati classification: II Thyromental Distance: 4-6 cm Respiratory: Lungs clear Cardiovascular: Regular rate Plan Problem List (1) Closed hip fracture: Plan: right hip fracture s/p ground level fall, will continue with management as follows: - I have reviewed Xray of hip myself, consistent with right intertrochanteric fracture and possible subcapital fracture - Case discussed with ED physician and orthopedic surgeon, agree with plan to proceed with surgical intervention - CT hip ordered per ortho's request, for complete evaluation of hip to determine surgical approach: results are pending -I have place patient on complete bed rest -I will initiate pain regimen of schedule tylenol 1gram and toradol 15mg x 3 doses, i will also order morphine for breakthrough pain -will monitor drug levels and clinical response to guide adjustments and avoid toxicity - I have reviewed patient's operative risk, RCRI score is low indicating low risk of major cardiac complication postoperatively -In anticipation for surgery will keep patient , nothing by mouth except medications after midnight Qualifiers: Encounter type: initial encounter Laterality: right Qualified Code(s): S72.001A - Fracture of unspecified part of neck of right femur, initial encounter for closed fracture (2) Parkinson's disease: Plan: Appears to be progressing, increase in falls over the past 6 months, persistent tremor -home medication reviewed. -Sinemet 25-100mg will be resumed -sertraline 25mg daily will be resumed Qualifiers: Dyskinesia presence: unspecified whether dyskinesia Fluctuating manifestations: with fluctuating manifestations Qualified Code(s): G20.A2 - Parkinson's disease without dyskinesia, with fluctuations (3) Parkinson disease: (4) Left wrist fracture: Qualifiers: Encounter type: initial encounter Fracture type: closed Qualified Code(s): S62.102A - Fracture of unspecified carpal bone, left wrist, initial encounter for closed fracture Plan Anesthesia Type: General and Fascia Iliaca Block Regional Block: Per Surgeon's request for Post Op pain control Consent for Procedure(s) Verified and Reviewed: Yes Code Status: Attempt Resuscitation ASA Classification ASA classification: 3-Severe systemic disease Is this case an emergency?: No
[2024-06-01] MEDS ORDERED: MORPHINE 2 MG/ML CARPUJECT IVP PRN (11:20)
[2024-06-01] MEDS ORDERED: fentaNYL 100 MCG/2 ML VIAL IVP PRN (11:20)
[2024-06-01] MEDS ORDERED: HYDROmorphone 0.5 MG/0.5 ML SYRINGE IVP PRN (11:20)
[2024-06-01] MEDS ORDERED: ePHEDrine 50 MG/ML VIAL IVP PRN (11:20)
[2024-06-01] MEDS ORDERED: NALOXONE 0.4 MG/ML VIAL IVP PRN (11:20)
[2024-06-01] MEDS ORDERED: ONDANSETRON 4 MG/2 ML VIAL IVP PRN (11:20)
[2024-06-01] MEDS ORDERED: ATROPINE ABBOJECT 1 MG/10 ML SYRINGE IVP PRN (11:20)
[2024-06-01] MEDS ORDERED: BUPIVACAINE 0.25% PF 10 ML VIAL ONE (11:37)
[2024-06-01] MEDS ORDERED: BUPIVACAINE 0.25% PF 30 ML VIAL ONE (11:37)
[2024-06-01] MEDS ORDERED: ePHEDrine 50 MG/ML VIAL IVP ONE (11:53)
[2024-06-01] MEDS ORDERED: PHENYLEPHRINE HCL 0.5 MG/5 ML AMPULE ONE (11:53)
[2024-06-01] MEDS ORDERED: LIDOCAINE-PF 2% 10 ML AMP SUBQ ONE (11:53)
[2024-06-01] MEDS ORDERED: PROPOFOL 200 MG/20 ML VIAL IVP ONE (11:53)
[2024-06-01] MEDS ORDERED: fentaNYL 100 MCG/2 ML VIAL ONE (11:53)
[2024-06-01] MEDS ORDERED: ROCURONIUM 50 MG/5 ML VIAL ONE (11:53)
[2024-06-01] MEDS ORDERED: SODIUM CHLORIDE 0.9% 10 ML VIAL IVP ONE ×2 (11:58→12:00)
[2024-06-01] MEDS ORDERED: TRANEXAMIC ACID 1,000 MG in SODIUM CHLORIDE 0.9% 100ML 100 ML IV PRN (12:00)
[2024-06-01] MEDS ORDERED: KETAMINE 500 MG/10 ML VIAL ONE (12:00)
[2024-06-01] MEDS ORDERED: ceFAZolin 1 GM VIAL ONE (12:36)
[2024-06-01] MEDS ORDERED: TRANEXAMIC ACID 1,000 MG/10 ML VIAL ONE (12:36)
[2024-06-01] MEDS ORDERED: SUGAMMADEX 200 MG/2 ML VIAL IVP ONE (13:43)
[2024-06-01] MEDS ORDERED: ONDANSETRON 4 MG/2 ML VIAL ONE (13:43)
[2024-06-01] MEDS ORDERED: DEXAMETHASONE 4 MG/ML VIAL ONE (13:43)
[2024-06-01] MEDS ORDERED: ROPIVACAINE 0.2% PF 10 ML VIAL ONE (13:46)
[2024-06-01] MEDS ORDERED: ONDANSETRON ODT 4 MG TABLET TL PRN (15:10)
--- NOTE | 2024-06-01 15:15 | XRAY Report ---
PROCEDURE: XR Pelvis 1-2V INDICATIONS: post operative imaging TECHNIQUE: 1 view(s) of the pelvis acquired. COMPARISON: None. FINDINGS: Postoperative changes demonstrating right femoral ORIF. Hardware is intact without evidence of hardwa re fracture or periprosthetic lucency to suggest loosening. Postsurgical soft tissue changes are pres ent. IMPRESSION: Right hip ORIF. Reviewed by: Meredith Lincoln MD on 06/01/2024 3:14 PM PST Approved by: Meredith Lincoln MD on 06/01/2024 3:14 PM PST Station ID: [id number]
[2024-06-01] MEDS: NS W/20 MEQ KCL 1,000 ML IV SCH (15:47)
--- NOTE | 2024-06-01 15:57 | ANESTHESIA POST OP EVALUATION ---
Anesthesia Post Eval Post Anesthesia Eval Vitals: Last Vital Signs Temp 36.3 C L 06/01/24 15:30 Pulse 85 06/01/24 15:30 Resp 16 06/01/24 15:30 BP 144/80 H 06/01/24 15:30 Pulse Ox 97 06/01/24 15:30 O2 Flow Rate 0 06/01/24 15:15 CV Function Including HR & BP: Stable Pain Control: Satisfactory Nausea & Vomiting: Negative Mental Status: Baseline Respiratory Status: Airway Patent Hydration Status: Satisfactory Anesthesia Complications: None
--- NOTE | 2024-06-01 16:45 | XRAY Report ---
PROCEDURE: FL OR C-Arm Procedure INDICATIONS: HIP NAILING FLUORO TIME: 000.8 COMPARISON: 05/31/2024 Findings and impression: Fluoroscopic guidance provided for intramedullary cory and interlocking screw fixation of the intertro chanteric femur fracture. Please see operative note for full details. Reviewed by: Roge Mackey MD on 06/01/2024 4:43 PM PST Approved by: Roge Mackey MD on 06/01/2024 4:43 PM PST Station ID: [id number]
[2024-06-01] MEDS: oxyCODONE 5 MG TABLET PO PRN (18:08)
[2024-06-01] MEDS: ceFAZolin 1 GM in SODIUM CHLORIDE 0.9% MINIBAG 100 ML IV SCH (20:11)
[2024-06-01] MEDS: ACETAMINOPHEN 500 MG TABLET PO SCH (21:31)
[2024-06-01] MEDS: DOCUSATE SODIUM 100 MG CAPSULE PO SCH (21:32)
[2024-06-01] MEDS: ATORVASTATIN 40 MG TABLET PO SCH (21:32)
--- NOTE | 2024-06-01 22:41 | OPERATIVE REPORT ---
Operative Report General Admit Date: 06/01/24 Procedure Data: Operation Date: 06/01/24 12:00 Proposed Procedures p Hip Nailing(Right) - Reginald Escalona MD Actual Procedures p Hip Nailing(Right) - Reginald Escalona MD Pre-Op Diagnosis: RIGHT HIP FRACTURE Anesthesia Type General Case Staff Anesthesia Provider: Manohar Francisco Assisting Provider: Jacques Navarrete Assisting Provider: Anay Loya Rep: SHWETA AG. Rep: CATHY BOWSER.. Case Times Into Recovery: 06/01/24 14:24 Procedure Start: 06/01/24 12:56 Procedure End: 06/01/24 14:00 Time out: 06/01/24 12:54 Implants INTERTAN 10S [id number] 125D LT TRIGEN LAG SCRW 100/95MM TRIGEN L-P SCREW [id number] Pre-Op Diagnosis: RIGHT Intertrochanteric Hip Fracture Post Op Diagnosis: DEVAUGHN Procedure Note Estimated Blood Loss (ml): 50 Other Other Information/Narrative: Op Note Date of Procedure: 06/01/24 Pre-Op Diagnosis: RIGHT Intertrochanteric Hip Fracture Post-Op Diagnosis: RIGHT Intertrochanteric Hip Fracture Procedure Open Reduction and Internal fixation of the RIGHT Intertrochanteric Hip Fracture Surgeon: Reginald Escalona MD Co-Surgeon: Jacques Navarrete MD Fire Chief'S Aide in OR: URBANO Bass Physician Fire Chief'S Aide was used throughout the entirety of the case. They assisted with room set up, patient positioning, draping, retraction, reduction, fixation and closure. They were essential for the success of the case. Anesthesia Type: General EBL: 50cc Specimens Removed: None Complications: None Implants/Grafts: [employer]hew - [id number] InterTan Nail 125 degrees 100/95 Lag/Compression Proximal Screw Kit 5.0 x 30 mm distal interlocking screw Drains: No lines, drains, or airways are recorded for this episode. Findings: Narrative: The patient was taken to the OR and administered anesthetic and preoperative antibiotics. They were placed on the fracture table with the operative leg in traction boot. SCD device placed on the nonoperative leg and it was placed in 90 hip and knee flexion on the support. Using traction and appropriate rotation, the hip was reduced to near anatomic position on fluoroscopic views. Standard prep and drape was done. Incision was made in line with and 5cm proximal to the greater trochanter. The incision was carried down through skin and subcutaneous fat to the fascia. Hemostasis achieved. The guide wire was then inserted at the tip of the greater trochanter and down into the proximal femoral shaft ensuring not to enter through the fracture site. The opening reamer was then used to ream over the guidewire down to the level of the lesser trochanter, taking care to remove bone centrally and not distract the fracture. We estimated that the size of the nail was a 10mm. The guidewire was removed. A short nail was then inserted through the opening. It was inserted using fluoroscopic guidance. Through a separate incision the aiming device was inserted down to the lateral cortex of the femur. A guidewire was then drilled into the femoral head subchondral bone traveling centrally through the neck. This was found to be center / center with AP and lateral fluoroscopy. We then followed the sequence of steps to place the lag and compression screw. There another separate small incision and distal locking screw was then drilled and inserted. AP and lateral fluoroscopic views confirmed satisfactory reduction and implant position. The wounds were irrigated. Fascia hilda closed with #0 Vicryl followed by skin with 2-0 Vicryl and 3-0 nylon in all incisions. Sterile dressings placed. Patient transferred to recovery room bed. Patient transferred to recovery room in stable condition. Plan: Weight bearing as tolerated. Follow-up in 2 weeks for wound check and staple removal. DVT prophylaxis with 6 weeks of aspirin. Physical therapy. Reginald Escalona MD
[2024-06-02] MEDS: CARBIDOPA/LEVODOPA 25 MG/100 MG TABLET PO PRN (01:32)
[2024-06-02 05:30] LABS: HCT - HEMATOCRIT 25.8 % (37.0-47.0); HGB - HEMOGLOBIN 8.4 g/dL (12.0-16.0); MEAN CORPUSCULAR HEMOGLOBIN 32.2 pg (27.0-31.0); MEAN CORPUSCULAR HGB CONC 32.6 g/dL (32.0-36.0); MEAN CORPUSCULAR VOLUME 98.9 fL (81.0-99.0); MEAN PLATELET VOLUME 9.4 fL (7.9-10.8); RED BLOOD COUNT 2.61 10^6/uL (4.20-5.40); RED CELL DISTRIBUTION WIDTH 12.9 % (12.0-15.0); WHITE BLOOD COUNT 15.3 x10^3/uL (4.8-10.8)
[2024-06-02 05:55] LABS: CALCIUM 8.5 mg/dL (8.5-10.3); CREATININE 0.5 mg/dL (0.6-1.3); POTASSIUM 3.8 mmol/L (3.5-4.5)
[2024-06-02] MEDS: IBUPROFEN 400 MG TABLET PO PRN (08:18)
[2024-06-02] MEDS: ASPIRIN EC 81 MG TABLET PO SCH (08:18)
[2024-06-02] MEDS: ceFAZolin 1 GM in SODIUM CHLORIDE 0.9% MINIBAG 100 ML IV ONE (09:14)
[2024-06-02] MEDS: LACTATED RINGERS 1,000 ML IV SCH (09:15)
--- NOTE | 2024-06-02 09:15 | PROVIDER PROGRESS NOTE ---
Subjective Subjective Subjective: Patient is a 79-year-old female with a history of Parkinson's on carbidopa/levodopa who presents after a ground-level fall. She states that over the last 3 to 4 weeks, she has been experiencing more falls. CT showed comminuted, angulated and displaced fracture of the right intertrochanteric femur. Orthopedic surgery completed surgery yesterday. Her pain is well-controlled on her current regimen of scheduled Toradol every 8 hours, as well as Motrin as needed. She does not want to take oxycodone as it gives her hallucinations. She was a little confused overnight, and remains oriented x 2. She is saying some out of place things like asking to be "brought to the first bed she was in." She is not moving her leg much, and states her pain is well controlled. She understands she has to work with PT/OT today and that may worsen the pain. Current Medications Current Medications Current Medications: Current Medications Generic Name Dose Route Start Last Admin Trade Name Freq PRN Reason Stop Dose Admin Acetaminophen 1,000 mg 06/01/24 22:00 06/02/24 05:42 Acetaminophen 500 Mg Tablet PO 1,000 mg TID SHANNAN Administration Aspirin 81 mg 06/02/24 09:00 06/02/24 08:18 Aspirin Ec 81 Mg Tablet PO 81 mg BID SHANNAN Administration Atorvastatin Calcium 40 mg 06/01/24 21:00 06/01/24 21:32 Atorvastatin 40 Mg Tablet PO 40 mg HS SHANNAN Administration Carbidopa/Levodopa 1.5 tab 05/31/24 21:00 06/02/24 08:19 Carbidopa/Levodopa 25 Mg/100 Mg Tablet PO 1.5 tab QID SHANNAN Administration Carbidopa/Levodopa 0.25 tab 05/31/24 20:34 06/02/24 01:32 Carbidopa/Levodopa 25 Mg/100 Mg Tablet PO 0.25 tab BID PRN Administration PARKINSON Docusate Sodium 100 mg 06/01/24 21:00 06/02/24 08:18 Docusate Sodium 100 Mg Capsule PO 100 mg BID SHANNAN Administration Ibuprofen 400 mg 06/02/24 08:03 06/02/24 08:18 Ibuprofen 400 Mg Tablet PO 400 mg Q6HR PRN Administration Moderate Pain (Level 4-6) Ondansetron HCl 4 mg 06/01/24 15:10 Ondansetron Odt 4 Mg Tablet TL Q6HR PRN Nausea / Vomiting Oxycodone HCl 2.5 mg 06/01/24 15:10 06/01/24 18:08 Oxycodone 5 Mg Tablet PO 2.5 mg Q6HR PRN Administration Severe Breakthrough pain(8-10) Patient Own Med 2 each 06/01/24 09:00 06/01/24 21:32 Quercetin 500 Mg PO Not Given Capsule BID SHANNAN Sertraline HCl 25 mg 06/01/24 09:00 06/02/24 08:18 Sertraline 25 Mg Tablet PO 25 mg DAILY SHANNAN Administration Sodium Chloride 10 ml 05/31/24 20:14 Sodium Chloride Flush 0.9% 10 Ml Syringe IVP PRN PRN NEEDED PER PROVIDER ORDERS Sodium Chloride 10 ml 06/01/24 01:00 06/02/24 08:23 Sodium Chloride Flush 0.9% 10 Ml Syringe IVP 10 ml 0100,0900,1700 SHANNAN Administration Objective Vital Signs/Intake & Output Reviewed Vital Signs: Yes Vital Signs: Vital Signs x48h Temp Pulse Pulse Resp BP Pulse Ox 06/02/24 08:20 98.1 F 94 18 162/80 H 95 06/02/24 06:20 97.9 F 90 16 151/67 H 96 Intake & Output: Intake & Output 05/30/24 05/31/24 06/01/24 06/02/24 23:59 23:59 23:59 23:59 Intake Total 1677 / 1677 1395 / 1395 Output Total 845 / 845 650 / 650 Balance 40 832 / 832 745 / 745 Weight (kg) 43 kg 43 kg Objective General Appearance: positive No acute distress, Alert and Other (tremor of head) Eyes Bilateral: positive PERRL, EOMI and No scleral icterus ENT: positive ENT inspection nml, Pharynx nml and No signs of dehydration Neck: positive Nml inspection, Thyroid nml and No JVD Respiratory: positive Chest non-tender, No respiratory distress and Breath sounds nml Cardiovascular: positive Regular rate & rhythm and No murmur; negative Tachycardia Abdomen: positive Non-tender, No organomegaly, Nml bowel sounds and No distention; negative Tenderness, Guarding, Rebound, Hepatomegaly or Splenomegaly Back: positive Nml inspection; negative CVA tenderness (R) or CVA tenderness (L) Skin: positive Color nml, No rash, Warm and Dry Extremities: negative Non-tender or Full ROM (RLE rotated, unable to move due to pain ) Neurologic/Psychiatric: positive Oriented x3 and Mood/affect nml Lab Results 06/02/24 05:23 06/02/24 05:23 Other Labs: Lab Results x24hrs 06/02/24 Range/Units 05:23 WBC 15.3 H (4.8-10.8) x10^3/uL RBC 2.61 L (4.20-5.40) 10^6/uL Hgb 8.4 L (12.0-16.0) g/dL Hct 25.8 L (37.0-47.0) % MCV 98.9 (81.0-99.0) fL MCH 32.2 H (27.0-31.0) pg MCHC 32.6 (32.0-36.0) g/dL RDW 12.9 (12.0-15.0) % Plt Count 330 (130-450) 10^3/uL MPV 9.4 (7.9-10.8) fL Sodium 140 (135-145) mmol/L Potassium 3.8 (3.5-4.5) mmol/L Chloride 110 (101-111) mmol/L Carbon Dioxide 26 (21-32) mmol/L Anion Gap 4.0 L (6-13) BUN 13 (6-20) mg/dL Creatinine 0.5 L (0.6-1.3) mg/dL Estimated GFR (MDRD) 119 (>89) Glucose 112 H (74-104) mg/dL Calcium 8.5 (8.5-10.3) mg/dL Diagnostic Imaging Diagnostic Imaging Results: positive Final report reviewed Assessment/Plan Problem List (1) Closed hip fracture: Impression: Patient with ground-level fall. Increased falls in the last few weeks, attributed to her Parkinson's disease. CT scan shows comminuted, angulated, displaced fracture of right intertrochanteric femur. Orthopedic surgery completed right hip nailing on 06/01. Pain control with Toradol, motrin, Tylenol. Patient would like to abstain from opioids as it gives her hallucinations. Continue aspirin twice a day for DVT prophylaxis per Orthopedic surgery. Plan to work with PT, OT today, followed by SNF placement. Patient agreeable. Qualifiers: Encounter type: initial encounter Laterality: right Qualified Code(s): S72.001A - Fracture of unspecified part of neck of right femur, initial encounter for closed fracture (2) Leukocytosis: Impression: No fevers, chills, cough, abdominal pain, nausea, vomiting, rash. Surgical site is dry, intact, no purulence noted. Likely reactive to surgery; continue to trend. Monitor off antibiotics. Qualifiers: Leukocytosis type: unspecified Qualified Code(s): D72.829 - Elevated white blood cell count, unspecified (3) Anemia: Impression: Likely due to blood losses during surgery. Continue to monitor. Qualifiers: Anemia type: unspecified type Qualified Code(s): D64.9 - Anemia, unspecified (4) Parkinson's disease: Impression: Patient with a history of Parkinson's disease on Sinemet. Follows with Dr. Jones in [place]; will call him and update him on the above. Qualifiers: Dyskinesia presence: unspecified whether dyskinesia Fluctuating manifestations: with fluctuating manifestations Qualified Code(s): G20.A2 - Parkinson's disease without dyskinesia, with fluctuations (5) Depression: Impression: Continue Zoloft. Qualifiers: Active/Remission status: remission status unspecified Depression Type: major depressive disorder Major depression recurrence: unspecified whether recurrent Qualified Code(s): F32.9 - Major depressive disorder, single episode, unspecified
[2024-06-02] MEDS: ceFAZolin 1 GM in SODIUM CHLORIDE 0.9% MINIBAG 100 ML IV SCH (09:17)
--- NOTE | 2024-06-02 16:11 | OT Plan of Care ---
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 To OR for ORIF - WBAT. Baseline PD impairing functional mobility and ADL's within last year. Met supine in bed, A&Ox4, willing to participate with therapy. Denied rated pain. Performed supine to sit, sit to stand, and SPT bed to chair MOD AX2 using 2WW - Fair outgoing inspector on walker. Currently MAX A LB, MIN A UB ADL with full set up and increased time. Overall presents with decreased endurance, activity tolerance, and ADL status. Will benefit from cont OT services during acute stay. Rec d/c to SNF. -Activities of Daily Living Improve Upper Extremity Dressing to:: Contact Guard Improve Lower Extremity Dressing to:: Contact Guard Improve Grooming/Hygiene to:: Contact Guard Improve Bathing to:: Contact Guard Improve Toileting to:: Contact Guard OT Inpatient Plan PLAN Treatment Frequency: 1x/day Duration: Until discharge -Discharge Recommendations Discharge Location: [facility] Transport Needs at Discharge: B.[email or web address]
--- NOTE | 2024-06-02 16:48 | PT Plan of Care ---
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 PMH includes PD originally dx in 2016. Pt has frequent falls in last 6 months with R humeral fx in Apr 2024 and L wrist fx s/p ORIF in Feb 2024. Pt lives alone in [facility], her brother is in room but lives out of town. Pt was Aleena at baseline but overall mobility declining with frequent falls and difficulty completing ADLs. Upon PT eval, pt transfers and completes short distance ambulation w/ FWW and modAx2. Significant scoliosis, general muscular atrophy, and chorea noted during all functional mobility. Of note, chorea limits ability to obtain vitals with BP cuff failure during eval. Pt presenting with significant limitations in strength, mobility, ADLs and gait. She is not safe to live indep at this time and PT rec dc to SNF. PATIENT/FAMILY GOALS Patient/Family Goals: To be strong enough to return home GOALS Improve supine to sit to:: Standby Assist Improve sit to stand to:: Minimal Assist Improve pivot transfer ability to:: Standby Assist Improve sit to supine to:: Contact Guard Improve gait ability to:: Min A Advance Assistive Device to:: Front Wheeled Walker Increase distance walked to (in feet):: 20 Improve Sitting Balance to:: Good PLAN Frequency: 1-2x/day Duration: Until goals are met DISCHARGE RECOMMENDATIONS [facility] Support/Services Needed: With assist DC Equipment Recommended: Front wheeled walker Transport Needs at Discharge: [facility]
--- NOTE | 2024-06-02 21:27 | POST OP PROGRESS NOTE ---
Subjective General Admit Date: 06/01/24 Procedure Date: 03/10/24 Post Op Days: 84 Other Other Information/Narrative: 79yo F with PMH of Parkinsons s/p Right Hip Cephalomedular Nail on 06/01/24. Reports that pain is well controlled. Worked with PT which slightly increased her pain. Denies F/C/NS/SOB or CP. Ortho Surgical Progress Note Problem List Problem List: 79yo F s/p right hip cephalomedulary nail on 06/01/24. She is doing well. Pain is well controlled. Stood and took a couple of steps with PT today. WBAT ROMAT COntinue with PT Will likely DC to SNF Follow up with ortho in 2 weeks Reginald Escalona MD Ortho [phone] Exam Exam RIGHT Hip: Inspection: Dressing C/D/I Neurovascular exam: Fires ta/gc/ehl; SILT s/s/sp/dp/t, 2+ dp Imaging: RIGHT hip radiographs on June 01, 2024: Demonstrates cephalomedulary nail placed for right hip intertrochanteric fracture. Unable to visualize fracture line.
--- NOTE | 2024-06-02 21:35 | POST OP PROGRESS NOTE ---
Subjective General Admit Date: 06/01/24 Procedure Date: 03/10/24 Post Op Days: 84 Procedure Performed: ORIF Right Hip with Intramedullary Nail and Hip Scres Ortho Surgical Progress Note Problem List Problem List: 79 year old female with a past medical history of parkinson's disease, asthma and hypertension is post operative day one from a right hip open reduction internal fixation with intramedullary nail and hip screws by Dr Escalona at [facility]. She has appropriate pain control with current pain regimen. She was up to chair with physical therapy and is awaiting further rehabilitation tomorrow. Murray discontinued today. Plan: - Weight bearing as tolerated to right lower extremity with front wheeled walker - No hip precautions - Physical therapy and occupational therapy evaluation daily - Anticipated discharge to SNF per PT recommendations - Pain control per medicine team - Aspirin 81 mg twice daily for 6 weeks - Colace as needed for bowel movements - [place] to be removed 2 weeks post operatively at Orthopedic clinic Review of Systems Patient alert and awake upon orthopedic team arrival She is comfortable when at rest She was able to stand with physical therapy today and move up to a chair Status of ROS: See HPI Exam Exam well developed, well nourished, 79 year old female, no acute distress 2 dressings dry and intact to right hip without hematoma formation or drainage Motor function in tact to right lower extremity
[2024-06-03 06:06] LABS: HCT - HEMATOCRIT 25.5 % (37.0-47.0); HGB - HEMOGLOBIN 8.4 g/dL (12.0-16.0); MEAN CORPUSCULAR HEMOGLOBIN 32.8 pg (27.0-31.0); MEAN CORPUSCULAR HGB CONC 32.9 g/dL (32.0-36.0); MEAN CORPUSCULAR VOLUME 99.6 fL (81.0-99.0); MEAN PLATELET VOLUME 9.8 fL (7.9-10.8); RED BLOOD COUNT 2.56 10^6/uL (4.20-5.40); RED CELL DISTRIBUTION WIDTH 13.2 % (12.0-15.0); WHITE BLOOD COUNT 9.1 x10^3/uL (4.8-10.8)
[2024-06-03 06:54] LABS: CALCIUM 8.6 mg/dL (8.5-10.3); CREATININE 0.4 mg/dL (0.6-1.3); POTASSIUM 3.6 mmol/L (3.5-4.5)
--- NOTE | 2024-06-03 08:46 | Discharge Summary ---
"Discharge Summary Admit Date: 05/31/24 Discharge Date: 06/03/24 Discharging Provider: Dr. Nithya Fowler Primary Care Provider: Sofia Servin Code Status: Attempt Resuscitation Discharge Facility [facility]: [facility] DIAGNOSES Admission Diagnoses: Closed hip fracture Parkinson's disease Discharge Diagnoses with Status of Each Condition: Close hip fracturepatient with ground-level fall, likely attributed worsening Parkinson's disease. CT showed comminuted, angulated, displaced fracture of right intertrochanteric femur. Right hip nailing completed on 06/01 with orthopedic surgery, Dr. Escalona. PT/OT worked with the patient, and recommend SNF. Patient is agreeable. Continue pain control with as needed Tylenol, Motrin. Continue DVT prophylaxis with aspirin 81 mg twice daily for 6 weeks. Follow-up with orthopedic surgery to remove janet in 2 weeks. Leukocytosisresolved. Likely reactive to surgery. Anemialikely due to postop blood losses. Recommend rechecking CBC in 1 week to reassess for resolution, and stability. No active bleeding noted. Parkinson's diseasecontinue Sinemet 25 mg / 100 mg 1.5 tabs 4 times daily. Depressioncontinue Zoloft. HPI History of Present Illness: Per Dr. Crawley: Mrs. Ma is a 79yo F with a history of Parkinson's that presented for evaluation of hip pain after a fall. She has had worsening balance and gait problems for the past 4 months. She has had several falls. On the day of presentation, she explained that she lost her footing and fell on her rightside. She denied any head trauma or loss of consciousness. After the fall she was unable to move her right leg or bare weight due to pain. In the ED she was found to have a right intertronchanteric fracture of her right hip. Orthopedic surgery reviewed her case and agreed to take her to surgery. Due to the need for surgical management, I will admit the patient to the hospitalist service for further management. CONSULTS | PROCEDURES Consultations: Orthopedic surgery, physical therapy, Occupational Therapy, social work Procedures: X-ray of chest, hip/pelvis x-ray, lower extremity CT, pelvis x-ray, C-arm fluoroscopy, right hip pinning in OR HOSPITAL COURSE Hospital Course: Patient is 79-year-old female with history of Parkinson's disease. She follows up with a neurologist, Dr. Jones, out of [place]. He did recently increase her dose of Sinemet. She usually lives alone, but her brother was staying with her. She had a ground-level fall. She was unable to move her right leg afterwards. As such, she decided to come in. CT scan was done and it showed a comminuted, angulated, displaced fracture of the right intertrochanteric femur. She went to the OR on 06/[address] Escalona, orthopedic surgery. They completed surgical pinning of the right hip. She is healing well. PT/OT worked with her, and recommended SNF placement. Patient and her brother were both agreeable to this. She does have some postoperative probably acute blood loss anemia. Advised to check a CBC in a 1 week. She also needs to been aspirin 81 mg twice daily for 6 weeks. She needs to follow-up with orthopedic surgery in 2 weeks for removal of surgical janet. She was also advised to follow-up with a neurologist when able for adjustment of her medications in setting of recent falls. ALLERGIES Allergies Allergy/AdvReac Type Severity Reaction Status Date / Time alendronate sodium (From Allergy Unknown Verified 05/31/24 17:58 Fosamax) ibandronate sodium (From Allergy Unknown Verified 05/31/24 17:58 Boniva) Penicillins Allergy Unknown Verified 05/31/24 17:58 risedronate sodium (From Allergy Unknown Verified 05/31/24 17:58 Actonel) Sulfa (Sulfonamide Allergy Unknown Verified 05/31/24 17:58 Antibiotics) FLU VACCINE Allergy Severe Unknown Uncoded 05/31/24 17:58 MEDICATIONS Ambulatory Orders Medication Instructions Recorded Confirmed atorvastatin 40 mg tablet 40 mg PO QPM 03/04/24 06/01/24 beclomethasone dipropionate 40 2 puff inhalation BID 03/08/24 06/01/24 mcg/actuation HFA breath activated aerosol (Qvar RediHaler) quercetin 500 mg capsule 2 tab PO DAILY 03/08/24 06/01/24 vitamin E (dl, acetate) 180 mg 180 mg PO DAILY 03/08/24 06/01/24 (400 unit) capsule ibuprofen 200 mg tablet (Advil) 400 mg PO Q8H PRN pain 04/18/24 06/01/24 carbidopa 25 mg-levodopa 100 mg 2 tab PO QID 05/06/24 06/01/24 tablet albuterol sulfate 90 mcg/actuation 1 - 2 puff inhalation Q4-6H PRN 06/01/24 06/01/24 aerosol inhaler (Ventolin HFA) per Providers orders ascorbic acid (vitamin C) 500 mg 500 mg PO DAILY 06/01/24 06/01/24 capsule cod liver oil 2 cap PO DAILY 06/01/24 06/01/24 aspirin 81 mg tablet,delayed 81 mg PO BID 6 weeks #84 tabs 06/03/24 release carbidopa 25 mg-levodopa 100 mg 0.25 tab PO BID PRN PARKINSON #30 06/03/24 tablet tabs sertraline 25 mg tablet 25 mg PO DAILY 30 days #30 tabs 06/03/24 PHYSICAL EXAM AT DISCHARGE General Appearance: positive No acute distress and Alert; negative Anxious or Lethargic Eyes Bilateral: positive Normal inspection, PERRL and EOMI ENT: positive ENT inspection nml, Pharynx nml and No signs of dehydration Neck: positive Nml inspection, Thyroid nml and No JVD Respiratory: positive Chest non-tender, No respiratory distress and Breath sounds nml; negative Wheezes, Rales or Rhonchi Cardiovascular: positive Regular rate & rhythm, No murmur and No gallop; negative Systolic murmur, Diastolic murmur or Gallop/S3 Peripheral Pulses: positive 2+ Abdomen: positive Non-tender, No organomegaly, Nml bowel sounds and No distention; negative Guarding, Hepatomegaly or Splenomegaly Back: positive Nml inspection; negative CVA tenderness (R) or CVA tenderness (L) Skin: positive No rash, Warm, Dry and Other (surgical scar with band-aid; not removed; dry and intact) Extremities: positive No pedal edema; negative Full ROM (RLE limited due to pain ) Neurologic/Psychiatric: positive Oriented x3, Sensation nml and Mood/affect nml LABS 06/03/24 05:00 06/03/24 05:23 DIAGNOSTIC IMAGING Diagnostic Imaging Results: Final report reviewed QUALITY (Female Hip Fx Only) Was patient sent home on osteoporosis medication?: No (ground level fall) FOLLOW UP Follow Up: Follow up with orthopedic surgery in 2 weeks for removal of janet. Follow up with neurologist for adjustment of Parkinson's medications. Follow up with PCP. TIME SPENT Time Spent in Discharge (Minutes): 35 Discharge Plan Discharge Patient Disposition: 03 [facility] DC/Xfer Condition: Stable Prescriptions: New aspirin 81 mg Tablet,Delayed Release (Dr/Ec) 81 mg PO BID 42 Days Qty: 84 0RF carbidopa-levodopa 25-100 mg Tablet 0.25 tab PO BID PRN (Reason: PARKINSON) Qty: 30 0RF sertraline 25 mg Tablet 25 mg PO DAILY 30 Days Qty: 30 0RF Continued atorvastatin 40 MG tablet 40 mg PO QPM carbidopa-levodopa 25-100 mg tablet 2 tab PO QID Patient Comments: patient states was increased to 2 tabs 4x daily Qvar RediHaler 100 PUFFS HFA aerosol breath activated 2 puff inhalation BID Patient Comments: not using can't open vitamin E (dl, acetate) 180 MG capsule 180 mg PO DAILY quercetin 500 MG capsule 2 tab PO DAILY ibuprofen [Advil] 200 mg tablet 400 mg PO Q8H PRN (Reason: pain) cod liver oil Capsule 2 cap PO DAILY ascorbic acid (vitamin C) 500 mg capsule 500 mg PO DAILY albuterol sulfate [Ventolin HFA] 90 mcg/actuation HFA aerosol inhaler 1 - 2 puff inhalation Q4-6H PRN (Reason: per Providers orders) Patient Comments: Patient states doesn't take very often Activity Restrictions: Wt Bearing as Tolerated Activity Restrictions/Additional Instructions: ORTHOPEDIC INSTRUCTIONS: - Follow up at [facility] within 2 weeks of discharge. Call our office at [phone] for a follow up appointment. - [place] were used to close your skin. Leave the dressings in place on your right hip until follow up. If the dressing becomes saturated, remove the dressing and call our office for further guidance. - Sponge baths are appropriate. If the dressing is saturated, call our office - Please seek care in the emergency department if you notice drainage from the dressing, fever, chills, chest pain or difficulty breathing. - Aspirin 81 mg twice daily for 6 weeks to prevent blood clots - Weight bearing as tolerated to right lower extremity with front wheeled walker at all times Diet: Regular Health Concerns: You came in because you had a ground-level fall. You are found to have a broken hip. You had surgery with the orthopedic surgeon, and it went well. You have to follow-up with them in 2 weeks. You can leave the dressings you have in place until the follow-up. You will have to continue aspirin 81 mg twice a day for 6 weeks to prevent blood clots. I have also continued all of your home medications. I would encourage you to follow-up with your neurologist to let him know about your increasing falls with the Parkinson's disease. I would also encourage you to follow-up with your primary care doctor. Please continue to work with physical therapy, weightbearing as tolerated for your right leg with a front wheel walker at all times. We are glad you are feeling better, thank you for allowing us to take care of you. Care Plan Goals: 1. Continue to exercise and rehab the right leg. 2. Follow-up with orthopedic surgery in 2 weeks. 3. Continue aspirin 81 mg twice a day for 6 weeks. 4. Work on getting stronger. 5. Continue take all medications as prescribed. Plan of Treatment: 1. Continue to exercise and rehab the right leg. 2. Follow-up with orthopedic surgery in 2 weeks. 3. Continue aspirin 81 mg twice a day for 6 weeks. 4. Work on getting stronger. 5. Continue take all medications as prescribed. Print Language: Uzbek Patient Instructions: Surgery Anesthesia After Stand Alone Forms: SNF Discharge, PCP List"
[2024-06-03 09:56] VITALS: TEMP 97.9
[2024-06-03 13:47] VITALS: BP 130/62; O2SAT 96
== END 2024-06-03 14:10 | DRG 481 ==
LOC: MS2 17:47 → ED 17:47 → MS2 20:07
PROVIDERS: ADMIT Hospitalist; ATTEND Hospitalist
PROC: HIPNAIL (2024-06-01 12:00)
DX: G20.A2 Parkinson's disease without dyskinesia, with fluctuations; I10 Essential (primary) hypertension; W07.XXXA Fall from chair, initial encounter; E78.5 Hyperlipidemia, unspecified; D72.829 Elevated white blood cell count, unspecified; G20.A1 Parkinson's disease without dyskinesia, without mention of fluctuations; F32.9 Major depressive disorder, single episode, unspecified; Y92.009 Unspecified place in unspecified non-institutional (private) residence as the place of occurrence of the external cause; M81.0 Age-related osteoporosis without current pathological fracture; S72.141A Displaced intertrochanteric fracture of right femur, initial encounter for closed fracture; Z91.81 History of falling; R53.1 Weakness; D62 Acute posthemorrhagic anemia